=== PATIENT | female | born 1940 | race Caucasian/White ===

== ENCOUNTER 2018-07-10 01:46 | Emergency (ER) | payer MEDICARE ==
[~2018-07-10] VITALS: Ht 152.4 cm; Wt 68.0 kg
--- OUTSIDE RECORDS SUMMARY | 2018-07-10 01:49 | XMS REPORT | Clinical Summary ---
Author Author PATRICIO [facility] Organization [facility] Address Unknown Phone Unavailable Care Team Providers Care Internet Marketing Executive Name Role Phone Joan Ross MD PCP Unavailable Allergies Comments Active Allergy Reactions Severity Noted Date Codeine Nausea And High 07/23/2013 Vomiting Can`t remember Propoxyphene Other (See High 07/23/2013 Comments) Dry mouth Escitalopram Oxalate Other (See High 02/05/2018 Comments) Cough Lisinopril Other (See High 02/05/2018 Comments) Can`t remember Sulfa (Sulfonamide Other (See High 07/23/2013 Antibiotics) Comments) Medications End Date Status Medication Sig Dispensed Refills Start Date Active amLODIPine (NORVASC) 10 Take 10 mg by 0 MG tablet mouth daily. Active calcium citrate-vitamin D Take 1 tablet 0 (CITRACAL+D) 315-200 by mouth 2 mg-unit per tablet (two) times daily. Active hydrALAZINE (APRESOLINE) Take 50 mg by 0 50 MG tablet mouth 2 (two) times daily. Active levothyroxine (SYNTHROID, Take 88 mcg 0 LEVOTHROID) 88 MCG tablet by mouth daily. Active simvastatin (ZOCOR) 20 MG Take 20 mg by 0 tablet mouth nightly. Active buPROPion (WELLBUTRIN SR) Take 150 mg 0 150 MG 12 hr tablet by mouth 2 (two) times daily. Active pantoprazole (PROTONIX) Take 1 tablet 0 40 MG tablet (40 mg total) 8 by mouth daily. Active atenolol (TENORMIN) 50 MG Take 50 mg by 0 tablet mouth daily. Active valsartan (DIOVAN) 320 MG Take 320 mg 0 tablet by mouth daily. Active zolpidem (AMBIEN) 10 mg Take 0.5 30 tablet 0 tablet tablets (5 mg 8 total) by mouth every night as needed. Max Daily Amount: 5 mg 09/06/2017 Discontinued indapamide (LOZOL) 1.25 Take 1.25 mg 0 MG tablet by mouth. 02/10/2018 Discontinued loratadine (CLARITIN) 10 Take 10 mg by 0 mg tablet mouth daily. 02/10/2018 Discontinued zolpidem (AMBIEN) 10 mg Take 10 mg by 0 tablet mouth every night as needed. 09/06/2017 Discontinued acetaminophen (TYLENOL) Take 650 mg 0 325 MG tablet by mouth every 6 (six) hours as needed. 01/21/2018 atenolol (TENORMIN) 50 MG Take 1 tablet 0 tablet (50 mg total) 7 by mouth daily. 09/07/2017 Discontinued buPROPion (WELLBUTRIN SR) Take 1 tablet 0 200 MG 12 hr tablet (200 mg 7 total) by mouth 2 (two) times daily. 09/06/2017 Discontinued simvastatin (ZOCOR) 10 MG Take 2 0 tablet tablets (20 7 mg total) by mouth nightly. 01/21/2018 ferrous sulfate 325 (65 Take 1 tablet 60 tablet 11 FE) MG tablet (325 mg 7 total) by mouth 2 (two) times daily. 09/06/2017 Discontinued fluticasone (FLONASE) 50 1 spray by 16 g 0 mcg/actuation nasal spray Nasal route 7 daily. 09/07/2017 Discontinued pantoprazole (PROTONIX) Take 1 tablet 60 tablet 3 40 MG tablet (40 mg total) 7 by mouth 2 (two) times daily. 01/21/2018 valsartan (DIOVAN) 320 MG Take 1 tablet 0 tablet (320 mg 7 total) by mouth daily. 02/10/2018 Discontinued azithromycin (ZITHROMAX) Take 250 mg 0 250 MG tablet by mouth daily Take by mouth as directed. . 02/10/2018 Discontinued levoFLOXacin (LEVAQUIN) Take 1 tablet 4 tablet 0 500 MG tablet (500 mg 8 total) by mouth daily for 4 days. 02/14/2018 levoFLOXacin (LEVAQUIN) Take 1 tablet 3 tablet 0 500 MG tablet (500 mg 8 total) by mouth daily for 3 days. Active Problems Problem Noted Date Closed head injury, initial encounter 02/05/2018 Hyponatremia 09/06/2017 Pneumonia of left lower lobe due to infectious organism 09/06/2017 Iron deficiency anemia due to chronic blood loss 01/19/2017 Age-related osteoporosis without current pathological fracture 01/19/2017 Acquired hypothyroidism 01/19/2017 Pathological fracture of vertebra due to osteoporosis with routine healing 01/19/2017 Carpal tunnel syndrome 07/25/2013 Encounters Care Team Description Date Type Specialty Rashad Leon MD Dhir, Bhargavi Izquierdo MD Closed head injury, initial encounter (Primary Dx); Contusion of face, initial encounter; Leukocytosis, unspecified type; Acute urinary retention; Urinary urgency; Hyponatremia 02/05/2018 [facility] General Internal Medicine - Encounter 02/10/2018 02/05/2018 Orders Only General Internal Medicine Vladimir Ceja MD Dang, MD Randi Colvin, Mattie Carreno MD Hyponatremia (Primary Dx); Pneumonia of left lower lobe due to infectious organism (HCC); Urinary tract infection without hematuria, site unspecified 09/06/2017 Emergency General Internal Medicine - 09/07/2017 after 07/09/2017 Family History Medical History Relation Name Comments Depression Mother Hypertension Mother Relation Name Status Comments Mother Social History Date Tobacco Use Types Packs/Day Years Used Never Smoker Smokeless Tobacco: Never Used Alcohol Use Drinks/Week oz/Week Comments No rare Sex Assigned at Date Recorded Not on file Industry Job Start Date Occupation Not on file Not on file Not on file Travel End Travel History Travel Start No recent travel history available. Last Filed Vital Signs Time Taken Vital Sign Reading 02/10/2018 8:12 AM CDT Blood Pressure 144/81 02/10/2018 8:12 AM CDT Pulse 84 02/10/2018 7:00 AM CDT Temperature 35.9 C (96.6 F) 02/10/2018 7:00 AM CDT Respiratory Rate 20 02/10/2018 7:00 AM CDT Oxygen Saturation 96% - Inhaled Oxygen - Concentration 02/10/2018 6:00 AM CDT Weight 52 kg (114 lb 11.2 oz) 02/09/2018 6:00 AM CDT Height 160 cm (5' 3") 02/10/2018 6:00 AM CDT Body Mass Index 20.32 Plan of Treatment Not on file Procedures Comments Procedure Name Priority Date/Time Associated Diagnosis RHYTHM STRIP - SCAN 02/13/2018 12:50 PM CDT CBC W/PLT COUNT & AUTO Routine 02/10/2018 DIFFERENTIAL 6:08 AM CDT BASIC METABOLIC PANEL (7) Routine 02/10/2018 6:08 AM CDT CBC W/PLT COUNT & AUTO Routine 02/10/2018 DIFFERENTIAL 6:08 AM CDT POCT-GLUCOSE METER Routine 02/09/2018 5:36 PM CDT BASIC METABOLIC PANEL (7) Routine 02/09/2018 5:21 PM CDT POCT-GLUCOSE METER Routine 02/09/2018 12:11 PM CDT POCT-GLUCOSE METER Routine 02/09/2018 7:39 AM CDT CBC W/PLT COUNT & AUTO Routine 02/09/2018 DIFFERENTIAL 5:55 AM CDT BASIC METABOLIC PANEL (7) Routine 02/09/2018 5:55 AM CDT CBC W/PLT COUNT & AUTO Routine 02/09/2018 DIFFERENTIAL 5:55 AM CDT POCT-GLUCOSE METER Routine 02/08/2018 10:07 PM CDT BASIC METABOLIC PANEL (7) Routine 02/08/2018 5:19 PM CDT POCT-GLUCOSE METER Routine 02/08/2018 12:19 PM CDT POCT-GLUCOSE METER Routine 02/08/2018 8:04 AM CDT CBC W/PLT COUNT & AUTO Routine 02/08/2018 DIFFERENTIAL 4:28 AM CDT BASIC METABOLIC PANEL (7) Routine 02/08/2018 4:28 AM CDT CBC W/PLT COUNT & AUTO Routine 02/08/2018 DIFFERENTIAL 4:28 AM CDT POCT-GLUCOSE METER Routine 02/07/2018 9:43 PM CDT BASIC METABOLIC PANEL (7) Routine 02/07/2018 4:38 PM CDT OSMOLALITY, URINE Routine 02/07/2018 12:03 PM CDT SODIUM, RANDOM URINE Routine 02/07/2018 12:03 PM CDT ECHOCARDIOGRAM REPORT - 02/07/2018 SCAN 11:51 AM CDT BASIC METABOLIC PANEL (7) Routine 02/07/2018 8:41 AM CDT CBC W/PLT COUNT & AUTO Routine 02/07/2018 DIFFERENTIAL 3:57 AM CDT CALCIUM, IONIZED Routine 02/07/2018 3:57 AM CDT BASIC METABOLIC PANEL (7) Routine 02/07/2018 3:57 AM CDT CBC W/PLT COUNT & AUTO Routine 02/07/2018 DIFFERENTIAL 3:57 AM CDT BLOOD CULTURE Routine 02/06/2018 11:44 PM CDT BLOOD CULTURE Routine 02/06/2018 11:22 PM CDT BASIC METABOLIC PANEL (7) Routine 02/06/2018 11:17 PM CDT 2D ECHO W/ DOPPLER EVETTE 02/06/2018 (CW/PW/COLOR) 7:39 PM CDT BASIC METABOLIC PANEL (7) Routine 02/06/2018 6:31 PM CDT BASIC METABOLIC PANEL (7) STAT 02/06/2018 2:29 PM CDT SODIUM NA-STAT LAB Routine 02/06/2018 12:15 PM CDT BASIC METABOLIC PANEL (7) STAT 02/06/2018 10:34 AM CDT MAGNESIUM Routine 02/06/2018 8:07 AM CDT BASIC METABOLIC PANEL (7) STAT 02/06/2018 8:07 AM CDT CORTISOL Routine 02/06/2018 8:07 AM CDT BASIC METABOLIC PANEL (7) STAT 02/06/2018 5:46 AM CDT SODIUM, RANDOM URINE Routine 02/06/2018 3:24 AM CDT OSMOLALITY, URINE Routine 02/06/2018 3:24 AM CDT (CELLAVISION MANUAL DIFF) Routine 02/06/2018 3:23 AM CDT CBC W/PLT COUNT & AUTO Routine 02/06/2018 DIFFERENTIAL 3:23 AM CDT OSMOLALITY, SERUM Routine 02/06/2018 3:23 AM CDT BASIC METABOLIC PANEL (7) STAT 02/06/2018 3:23 AM CDT CBC W/PLT COUNT & AUTO Routine 02/06/2018 DIFFERENTIAL 3:23 AM CDT BASIC METABOLIC PANEL (7) STAT 02/06/2018 1:06 AM CDT BASIC METABOLIC PANEL (7) STAT 02/05/2018 10:57 PM CDT POTASSIUM, RANDOM URINE Routine 02/05/2018 8:44 PM CDT BASIC METABOLIC PANEL (7) STAT 02/05/2018 8:44 PM CDT XR CHEST 1 VIEW STAT 02/05/2018 PORTABLE/BEDSIDE 7:06 PM CDT CREATININE, RANDOM URINE Routine 02/05/2018 6:34 PM CDT CHLORIDE, RANDOM URINE Routine 02/05/2018 6:34 PM CDT SODIUM, RANDOM URINE Routine 02/05/2018 6:34 PM CDT OSMOLALITY, SERUM Routine 02/05/2018 6:34 PM CDT OSMOLALITY, URINE Routine 02/05/2018 6:34 PM CDT TSH/FREE T4 IF INDICATED Routine 02/05/2018 6:34 PM CDT CRITICAL CARE Routine 02/05/2018 5:26 PM CDT OK FAST ULTRASOUND - Routine 02/05/2018 LIMITED ABDOMINAL 5:26 PM CDT MISCELLANEOUS LAB ORDER Routine 02/05/2018 4:31 PM CDT BLOOD CULTURE STAT 02/05/2018 4:31 PM CDT BLOOD CULTURE STAT 02/05/2018 4:31 PM CDT BASIC METABOLIC PANEL (7) STAT 02/05/2018 3:45 PM CDT URINALYSIS W/ MICROSCOPIC STAT 02/05/2018 2:49 PM CDT URINE CULTURE STAT 02/05/2018 2:49 PM CDT (CELLAVISION MANUAL DIFF) STAT 02/05/2018 2:48 PM CDT CBC W/PLT COUNT & AUTO STAT 02/05/2018 DIFFERENTIAL 2:48 PM CDT CBC W/PLT COUNT & AUTO STAT 02/05/2018 DIFFERENTIAL 2:48 PM CDT ECG 12-LEAD Routine 02/05/2018 2:39 PM CDT Procedure Note - Interface, External Ris In - 02/05/2018 6:49 PM CDT Ventricula r Rate 79 BPM Atrial Rate 94 BPM QRS Duration 80 ms Q-T Interval 396 ms QTC Calculatio n(Bazett) 454 ms R [place] 78 degrees T [place] 81 degrees Atrial fibrillati on Nonspecifi c ST and T wave abnormalit y , probably digitalis effect Abnormal ECG When compared with ECG of 7 20:48, Atrial fibrillati on has replaced Sinus rhythm Nonspecifi c T wave abnormalit y now evident in Anterolate ral leads ECG 12-LEAD STAT 02/05/2018 2:[address] MAXILLOFACIAL WITHOUT STAT 02/05/2018 IV CONTRAST 2:[address] BRAIN WITHOUT IV STAT 02/05/2018 CONTRAST 2:15 PM CDT POCT-GLUCOSE METER Routine 09/07/2017 10:33 AM STONE BREAKER BASIC METABOLIC PANEL (7) Routine 09/07/2017 4:25 AM STONE BREAKER CBC (HEMOGRAM ONLY) Routine 09/07/2017 4:25 AM STONE BREAKER POCT-GLUCOSE METER Routine 09/06/2017 10:07 PM STONE BREAKER OSMOLALITY, SERUM Routine 09/06/2017 7:04 PM STONE BREAKER TSH/FREE T4 IF INDICATED Routine 09/06/2017 7:04 PM STONE BREAKER URINE CULTURE STAT 09/06/2017 5:33 PM STONE BREAKER CBC W/PLT COUNT & AUTO STAT 09/06/2017 DIFFERENTIAL 3:03 PM STONE BREAKER MAGNESIUM STAT 09/06/2017 3:03 PM STONE BREAKER HEPATIC FUNCTION PANEL STAT 09/06/2017 3:03 PM STONE BREAKER BASIC METABOLIC PANEL (7) STAT 09/06/2017 3:03 PM STONE BREAKER CBC W/PLT COUNT & AUTO STAT 09/06/2017 DIFFERENTIAL 3:03 PM STONE BREAKER SODIUM, RANDOM URINE Routine 09/06/2017 2:54 PM STONE BREAKER OSMOLALITY, URINE Routine 09/06/2017 2:52 PM STONE BREAKER URINALYSIS W/ MICROSCOPIC STAT 09/06/2017 2:52 PM STONE BREAKER after 07/09/2017 Results * RHYTHM STRIP - SCAN (02/13/2018 12:50 PM CDT) Narrative Performed At * CBC with platelet count + automated diff (02/10/2018 6:08 AM CDT) Only the most recent of 7 results within the time period is included. WBC 7.0 3.5 - 10.5 K/L [facility] RBC 4.30 3.93 - 5.22 M/L [facility] Hemoglobin 12.9 11.2 - 15.7 GM/DL [facility] Hematocrit 38.7 34.1 - 44.9 % [facility] MCV 90.0 79.4 - 94.8 fL [facility] MCH 30.0 25.6 - 32.2 pg [facility] MCHC 33.3 32.2 - 35.5 GM/DL [facility] RDW 12.9 11.7 - 14.4 % [facility] Platelets 227 150 - 450 K/CU MM [facility] MPV 10.2 9.4 - 12.3 fL [facility] nRBC 0 0 - 0 /100 WBC [facility] % Neutros 57 % [facility] % Lymphs 17 % [facility] % Monos 19 % [facility] % Eos 3 % [facility] % Baso 1 % [facility] # Neutros 3.93 1.56 - 6.13 K/L [facility] # Lymphs 1.15 (L) 1.18 - 3.74 K/L [facility] # Monos 1.34 (H) 0.24 - 0.36 K/L [facility] # Eos 0.23 0.04 - 0.36 K/L [facility] # Baso 0.06 0.01 - 0.08 K/L [facility] Immature 4 (H) 0 - 1 % [facility] Granulocytes-Relative [facility] Specimen Blood Performing Organization Address City/State/Zipcode Phone Number [facility] [address] [place] [address] [facility] * Basic Metabolic Panel (02/10/2018 6:08 AM CDT) Only the most recent of 21 results within the time period is included. Sodium 132 (L) 136 - 145 meq/L [facility] Potassium 3.6 3.5 - 5.1 meq/L [facility] Chloride 101 98 - 107 meq/L [facility] CO2 23 22 - 29 meq/L [facility] BUN 13 7 - 21 mg/dL [facility] Creatinine 0.73 0.57 - 1.25 mg/dL [facility] Glucose 96 70 - 105 mg/dL [facility] Calcium 8.4 8.4 - 10.2 mg/dL [facility] EGFR 77Comment: ESTIMATED GFR IS mL/min/1.73 sq m [facility] NOT ACCURATE CREATININE [facility] CLEARANCE IN PREDICTING GLOMERULAR FILTRATION RATE. ESTIMATED GFR IS NOT APPLICABLE FOR DIALYSIS PATIENTS. Specimen Blood Performing Organization Address City/[facility]/Zipcode Phone Number [facility] [address] [place] [address] [facility] * POC-Glucose meter (02/09/2018 5:36 PM CDT) Only the most recent of 9 results within the time period is included. POC-Glucose Meter 114 (H)Comment: TESTED AT 70 - 110 mg/dL [facility] [address] [place] [id number] Specimen Blood Performing Organization Address [facility] [[email or web address] Phone Number [address] * Sodium, random urine (02/07/2018 12:03 PM CDT) Only the most recent of 4 results within the time period is included. Sodium Urine <20 meq/L [facility] Specimen Urine - Urine, [place] Narrative Performed At Reference Range: No Normals [facility] Performing Organization Address [facility] [[email or web address] Phone Number [address] * Osmolality, urine (02/07/2018 12:03 PM CDT) Only the most recent of 4 results within the time period is included. Osmolality, Ur 205 40 - 1,400 mOsm/kg [facility] Specimen Urine - Urine, [place] Performing Organization Address [facility] Phone Number [address] * ECHOCARDIOGRAM REPORT - SCAN (02/07/2018 11:51 AM CDT) Narrative Performed At * Calcium, Ionized (02/07/2018 3:57 AM CDT) Calcium, Ion 1.08 (L) 1.12 - 1.27 mmol/L [facility] pH, Blood 7.45 [facility] Specimen Blood Performing Organization Address [facility] [[email or web address]]conm Phone Number [address] * Blood culture (02/06/2018 11:44 PM CDT) Only the most recent of 4 results within the time period is included. Result No growth in 5 days [facility] Specimen Blood - Arm, Right Performing Organization Address City/[facility] [[email or web address] Phone Number [facility] [address] [place] [address] [facility] * 2D Echo W/Doppler(CW/PW/Color) (02/06/2018 7:39 PM CDT) Ejection Fraction [facility] Narrative Performed At Transthoracic Echocardiography Report (TTE) [facility] Demographics [facility] Patient Milagros Mueller of Study 02/06/2018 JOEL Visit [id number] Unknown Room Number 7301 Number Date of 1940Referring Physician Christian Guerra MD Age 77 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 Clinical History AV BLOCK CANCER GERD HIGH CHOLESTEROL HTN HYPOTHYROIDISM Height: 63 inches Weight: 54.43 kg (120 lbs) BSA: 1.56 m^2 BMI: 21.26 kg/m^2 HR: 63 bpm BP: 110/64 mmHg Summary Normal biventricular systolic function. LVEF 55-60%. Severe left atrial dilation. Mild aortic and tricuspid regurgitation. Estimated PASP 35-40mmHg. No pericardial effusion. Previous Study No prior studies available for comparison. Signature Findings Rhythm/BPAtrial fibrillation with controlled ventricular response. Left Ventricle The left ventricle is chamber size (by vol index) is normal (female - LVED vol - 29-61ml/m2). Sigmoid septum with discrete basal septal hypertrophy is present, otherwise normal LV wall thickness. All of the LV segments contract normally . LVEF by García's method of disk assessment is normal (60%) . Degree of diastolic dysfunction (LAP assessment) is inconclusive due to arrhythmia . Left AtriumLA size is severely enlarged (>48 ml/m2) . Right VentricleThe right ventricular chamber size and systolic function are within normal limits. Right Atrium RA size is mildly dilated. Atrial SeptumNormal interatrial septum by available views. Aortic Valve Mild AoV cusp thickening. Mild AoV cusp calcification. There is mild aortic regurgitation. Mitral Valve Mild MV leaflet thickening. Trace mitral regurgitation. Tricuspid ValveMild TV leaflet thickening. Mild tricuspid regurgitation. Estimated peak systolic PA pressure is 35-40 mmHg Pulmonic Valve Normal PV structure. A trace of pulmonary regurgitation. AortaAortic root size (SInus of Valsalva diameter) is normal . PericardiumNo significant pericardial effusion is visualized. IVC/SVC/PA/PV/PleuralThe estimated RA pressure by IVC dynamics 5-10mmHg . Chambers/Structures Left Atrium LA Volume: 91.78 ml LA Area: 26.88 cm^2 LA Vol. Index: 59 ml/m^2 Left Ventricle LVIDd: 3.37 cm LVIDs: 2.07 cm LV Septum Diastolic: 1.14 cm LV Septum Systolic: 1.49 cm LV FS: 38.6 % LV PW Diastolic: 1.29 cm LV PW Systolic: 1.33 cm LVEDVI: 36 ml/m^2 LVEDV García's:55.55 mlLVESVI: 15 ml/m^2 LVESV García's:22.89 ml LVEF García's: 58.8 % Right Atrium RA Vol. (Sngl Plane): 53.45 ml Right Ventricle TAPSE: 2.09 cm Vena Cava IVC Inspirium: 1.16 cmIVC Expirium: 1.62 cm Doppler/Quantitative Measurements Mitral Valve MV Peak E-Wave: 1.36 m/s Peak Gradient: 7.39 mmHg MV Dani. Peak: Tissue Doppler E' Septal Velocity: 0.07 m/s E/E': 12.67 E' Lateral Velocity: 0.11 m/s Aortic Valve Area (2D): 2.15 cm^2 AR P1/2t: 510.8 msec LVOT Peak Velocity: 1.06 m/s Peak Gradient: 4.51 mmHg Mean Velocity: 0.69 m/s Mean Gradient: 2.3 mmHg LVOT VTI: 19.8 cm Tricuspid Valve TR Velocity: 2.81 m/s TR Gradient: 31.6 mmHg Procedure Note Interface, External Ris In - 02/07/2018 11:24 AM CDT Transthoracic Echocardiography Report (TTE) Demographics Patient Name WM ESCOBAR Date of Study 02/06/2018 [facility] [place] Female Visit Number [id number] Race Unknown Room Number 7301 Number Date of 1940 Referring Physician Christian Guerra MD Age 77 year(s) [employer]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 Clinical History AV BLOCK CANCER GERD HIGH CHOLESTEROL HTN HYPOTHYROIDISM Height: 63 inches Weight: 54.43 kg (120 lbs) BSA: 1.56 m^2 BMI: 21.26 kg/m^2 HR: 63 bpm BP: 110/64 mmHg Summary Normal biventricular systolic function. LVEF 55-60%. Severe left atrial dilation. Mild aortic and tricuspid regurgitation. Estimated PASP 35-40mmHg. No pericardial effusion. Previous Study No prior studies available for comparison. Signature Findings Rhythm/BP Atrial fibrillation with controlled ventricular response. Left Ventricle The left ventricle is chamber size (by vol index) is normal (female - LVED vol - 29-61ml/m2). Sigmoid septum with discrete basal septal hypertrophy is present, otherwise normal LV wall thickness. All of the LV segments contract normally . LVEF by García's method of disk assessment is normal (60%) . Degree of diastolic dysfunction (LAP assessment) is inconclusive due to arrhythmia . Left Atrium LA size is severely enlarged (>48 ml/m2) . Right Ventricle The right ventricular chamber size and systolic function are within normal limits. Right Atrium RA size is mildly dilated. Atrial Septum Normal interatrial septum by available views. Aortic Valve Mild AoV cusp thickening. Mild AoV cusp calcification. There is mild aortic regurgitation. Mitral Valve Mild MV leaflet thickening. Trace mitral regurgitation. Tricuspid Valve Mild TV leaflet thickening. Mild tricuspid regurgitation. Estimated peak systolic PA pressure is 35-40 mmHg Pulmonic Valve Normal PV structure. A trace of pulmonary regurgitation. Aorta Aortic root size (SInus of Valsalva diameter) is normal . Pericardium No significant pericardial effusion is visualized. IVC/SVC/PA/PV/Pleural The estimated RA pressure by IVC dynamics 5-10mmHg . Chambers/Structures Left Atrium LA Volume: 91.78 ml LA Area: 26.88 cm^2 LA Vol. Index: 59 ml/m^2 Left Ventricle LVIDd: 3.37 cm LVIDs: 2.07 cm LV Septum Diastolic: 1.14 cm LV Septum Systolic: 1.49 cm LV FS: 38.6 % LV PW Diastolic: 1.29 cm LV PW Systolic: 1.33 cm LVEDVI: 36 ml/m^2 LVEDV García's:55.55 ml LVESVI: 15 ml/m^2 LVESV García's:22.89 ml LVEF García's: 58.8 % Right Atrium RA Vol. (Sngl Plane): 53.45 ml Right Ventricle TAPSE: 2.09 cm Vena Cava IVC Inspirium: 1.16 cm IVC Expirium: 1.62 cm Doppler/Quantitative Measurements Mitral Valve MV Peak E-Wave: 1.36 m/s Peak Gradient: 7.39 mmHg MV Dani. Peak: Tissue Doppler E' Septal Velocity: 0.07 m/s E/E': 12.67 E' Lateral Velocity: 0.11 m/s Aortic Valve Area (2D): 2.15 cm^2 AR P1/2t: 510.8 msec LVOT Peak Velocity: 1.06 m/s Peak Gradient: 4.51 mmHg Mean Velocity: 0.69 m/s Mean Gradient: 2.3 mmHg LVOT VTI: 19.8 cm Tricuspid Valve TR Velocity: 2.81 m/s TR Gradient: 31.6 mmHg Performing Organization Address [facility] [[email or web address] Phone Number [facility] * Sodium Na-Stat Lab (02/06/2018 12:15 PM CDT) Sodium 118 (LL) 135 - 148 meq/L [facility] Specimen Blood, Arterial - Arm, Left Performing Organization Address [facility] Phone Number [address] * Cortisol (02/06/2018 8:07 AM CDT) Cortisol, Total 12.8 3.7 - 19.4 ug/dL [facility] Specimen Blood - Arm, Right Performing Organization Address [facility] Phone Number [address] * Magnesium (02/06/2018 8:07 AM CDT) Only the most recent of 2 results within the time period is included. Magnesium 2.2 1.6 - 2.6 mg/dL [facility] Specimen Blood - Arm, Right Performing Organization Address [facility] Phone Number [address] * Manual Differential (02/06/2018 3:23 AM CDT) Only the most recent of 2 results within the time period is included. % Neutros 90 % [facility] % Lymphs 3 % [facility] % Monos 5 % [facility] % Bands 1 0 - 10 % [facility] % Atypical Lymphs 1 (H) 0 - 0 % [facility] # Neutros 13.59 (H) 1.56 - 6.13 K/ul [facility] # Lymphs 0.45 (L) 1.18 - 3.74 K/ul [facility] # Monos 0.76 (H) 0.24 - 0.36 K/uL [facility] # Bands 0.15 0.00 - 0.80 K/uL [facility] # Atypical Lymphs 0.15 (H) 0.00 - 0.00 K/uL [facility] Total Counted 100 [facility] RBC Morphology Normal [facility] Clumped Platelet Present [facility] Smudge Cells Present [facility] Giant Platelet Present [facility] Artifact Present [facility] Platelet Conc Adequate [facility] Specimen Blood - Arm, Left Narrative Performed At Received comment: [facility] User comments: [facility] Slide comments: Performing Organization Address City/[facility] [[email or web address]]code Phone Number [facility] [address] [place] [address] [phone] [place] [address] * Osmolality, serum (02/06/2018 3:23 AM CDT) Only the most recent of 3 results within the time period is included. Osmolality Serum 249 (L) 275 - 295 mOsm/kg [facility] Specimen Blood - Arm, Left Performing Organization Address City/[facility] [[email or web address] Phone Number [facility] [address] [place] [address] [facility] * Potassium, random urine (02/05/2018 8:44 PM CDT) Potassium Urine 22.8 meq/L [facility] Specimen Urine - Urine, [place] Narrative Performed At Reference Range: No Normals [facility] Performing Organization Address City/[facility] [[email or web address] Phone Number [facility] [address] [address] [facility] * XR chest 1 view portable / bedside (02/05/2018 7:06 PM CDT) Narrative Performed At FINAL REPORT [facility] History: Leukocytosis, fall. Comparison: 01/20/2018 Findings: A single view of the chest is submitted. The cardiac silhouette is within normal limits for size. There is atherosclerotic calcification of the aorta. A retrocardiac hiatal hernia is redemonstrated. The lungs are hyperinflated. There is no focal consolidation, pneumothorax, large pleural effusion or evidence of overt pulmonary edema. There is no acute bony abnormality. Impression: No acute abnormality. Signed: Teodoro Lakhani MD Report Verified Date/Time:02/05/2018 19:15:38 Reading Location: [address] Reading Room Procedure Note Interface, External Ris In - 02/05/2018 7:17 PM CDT FINAL REPORT History: Leukocytosis, fall. Comparison: 01/20/2018 Findings: A single view of the chest is submitted. The cardiac silhouette is within normal limits for size. There is atherosclerotic calcification of the aorta. A retrocardiac hiatal hernia is redemonstrated. The lungs are hyperinflated. There is no focal consolidation, pneumothorax, large pleural effusion or evidence of overt pulmonary edema. There is no acute bony abnormality. Impression: No acute abnormality. Signed: Teodoro Lakhani MD Report Verified Date/Time: 02/05/2018 19:15:38 Reading Location: [address] Reading Room Performing Organization Address City/[facility]/Zipcode Phone Number [facility] * TSH/Free T4 If Indicated (02/05/2018 6:34 PM CDT) Only the most recent of 2 results within the time period is included. TSH 2.09 0.35 - 4.94 uIU/mL [facility] Specimen Blood - Line, Venous Performing Organization Address City/[facility]/Zipcode Phone Number [facility] [address] [facility] * Creatinine, random urine (02/05/2018 6:34 PM CDT) Creatinine, Ur 16.1 mg/dL [facility] Specimen Urine - Urine, [place] Narrative Performed At Reference Range: No Normals [facility] Performing Organization Address [facility] [[email or web address]]conm Phone Number [address] [address] [facility] * Chloride, random urine (02/05/2018 6:34 PM CDT) ChlorideUr <20 meq/L [facility] Specimen Urine - Urine, [place] Narrative Performed At Reference Range: No Normals [facility] Performing Organization Address [facility] [[email or web address]]conm Phone Number [address] [address] [facility] * ED ABDOMINAL ULTRASOUND (02/05/2018 5:26 PM CDT) Narrative Performed At Rashad Leon MD 02/05/20185:26 PM Abd US Date/Time: 02/05/2018 2:25 PM Performed by: RASHAD LEON Authorized by: RASHAD LEON Consent: Verbal consent obtained. Risks and benefits: risks, benefits and alternatives were discussed Consent given by: patient Patient identity confirmed: verbally with patient Local anesthesia used: no Anesthesia: Local anesthesia used: no Sedation: Patient sedated: no Patient tolerance: Patient tolerated the procedure well with no immediate complications Immediate Post-Procedure Note Assistants to the procedure: None Pre-procedure diagnosis: ABDOMINAL PAIN URINARY URGENCY Post-procedure diagnosis: URINARY URGENCY/RETENTION Procedures Performed: Abd US Specimens removed: None Estimated blood loss (mL): None Complications: None Type of anesthesia: None Grafts or Implants: None Examiner:Attending Examiner attestation: I personally performed the procedure myself Indications:Abdominal pain Scope: limited--single quadrant or single abdominal organ : EVAULATED FOR URINARY RETENTION. : DISTENDED BLADDER.Procedure Notes:Confirmatory study to be done in ED * CRITICAL CARE (02/05/2018 5:26 PM CDT) Narrative Performed At Rashad Leon MD 02/05/20185:26 PM Critical Care Performed by: RASHAD LEON. Authorized by: RASHAD LEON Total critical care time: 35 minutes Critical care time was exclusive of separately billable procedures and treating other patients. Critical care was necessary to treat or prevent imminent or life-threatening deterioration of the following conditions: metabolic crisis, sepsis and dehydration. Critical care was time spent personally by me on the following activities: development of treatment plan with patient or surrogate, discussions with consultants, obtaining history from patient or surrogate, examination of patient, ordering and performing treatments and interventions, ordering and review of laboratory studies, pulse oximetry, re-evaluation of patient's condition and ordering and review of radiographic studies. Comments: I provided medically necessary Critical Care on an emergent basis in order to prevent any sudden, clinically significant deterioration in her condition. Critical care time:35min It is my opinion that her clinical presentation, without appropriate emergent intervention has the potential to acutely impair one or more of her vital organ systems with a high probability of imminent deterioration in her condition. The time involved in the performance of separately reportable procedures or teaching time was not counted towards the critical care time that is documented here. * BCID (02/05/2018 4:31 PM CDT) Scan Result [facility] Specimen Blood Narrative Performed At [facility] Result comments: LAB NOT DETECTED Panel is negative for BioFire BCID-detectable organisms. Please refer to traditional culture and sensitivity results as they become available. Other organisms and resistance markers not contained in this PCR panel cannot be excluded and follow-up of traditional culture results is required. This sample was tested at the [facility] Clinical Microbiology Laboratory using the Biofire FilmArray Blood Culture ID Panel. This test is FDA cleared for in vitro diagnostic use and has been verified and approved by the [facility] Clinical Microbiology laboratory for clinical use. Reference Range: Not Detected Performing Organization Address City/State/Zipcode Phone Number [facility] [address] [place], [place] * Urinalysis w/Microscopic (02/05/2018 2:49 PM CDT) Only the most recent of 2 results within the time period is included. Color, UA Yellow [facility] Clarity, UA Hazy [facility] Specific [place], UA 1.005 1.001 - 1.035 [facility] pH, UA 8.0 5.0 - 8.0 [facility] Protein, UA 30 mg/dL (A) Negative [facility] Glucose, UA Negative Negative [facility] Ketones, UA Negative Negative [facility] Bilirubin, UA Negative Negative [facility] Blood, UA Trace (A) Negative [facility] Nitrite, UA Negative Negative [facility] Leukocytes, UA Large (A) Negative [facility] Urobilinogen, UA 0.2 0.2 - 1.0 mg/dL [facility] RBC, UA 11 /HPF [facility] WBC, UA 11 /HPF [facility] Bacteria, UA Moderate [facility] Specimen Source Urine, [place] [facility] Specimen Urine - Urine, [place] Performing Organization Address City/State/Zipcode Phone Number [facility] [address] [place] [address] [facility]ENTER * Urine culture (02/05/2018 2:49 PM CDT) Only the most recent of 2 results within the time period is included. Result KLEBSIELLA PNEUMONIAE (A) [facility] Specimen Urine Antibiotic Method Susceptibility Organism Amikacin <=2: Susceptible Klebsiella pneumoniae Ampicillin + Sulbactam 4: Susceptible Klebsiella pneumoniae Aztreonam <=1: Susceptible Klebsiella pneumoniae Cefepime <=1: Susceptible Klebsiella pneumoniae Cefoxitin <=4: Susceptible Klebsiella pneumoniae Ceftazidime <=1: Susceptible Klebsiella pneumoniae Ceftriaxone <=1: Susceptible Klebsiella pneumoniae Ertapenem <=0.5: Susceptible Klebsiella pneumoniae Gentamicin <=1: Susceptible Klebsiella pneumoniae Levofloxacin <=0.12: Susceptible Klebsiella pneumoniae Meropenem <=0.25: Susceptible Klebsiella pneumoniae Nitrofurantoin 64: Resistant Klebsiella pneumoniae Piperacillin + Tazobactam <=4: Susceptible Klebsiella pneumoniae Tetracycline <=1: Susceptible Klebsiella pneumoniae Tobramycin <=1: Susceptible Klebsiella pneumoniae Trimethoprim + Sulfamethoxazole <=20: Susceptible Klebsiella pneumoniae Performing Organization Address City/[facility] [[email or web address]]conm Phone Number [facility] [address] [place] [address] [facility] * ECG 12 lead (02/05/2018 2:39 PM CDT) Narrative Performed At Ventricular Rate 79 BPM GE MUSE Atrial Rate 94 BPM QRS Duration 80 ms Q-T Interval 396 ms QTC Calculation(Bazett) 454 ms R [place] 78 degrees T [place] 81 degrees Atrial fibrillation Nonspecific ST and T wave abnormality Abnormal ECG When compared with ECG of 19-JAN-2017 20:48, Atrial fibrillation has replaced Sinus rhythm Nonspecific T wave abnormality now evident in Anterolateral leads Confirmed by MD BRADY YOCHAI ([id number]) on 02/06/2018 6:30:04 AM Procedure Note Interface, External Ris In - 02/06/2018 6:30 AM CDT Ventricular Rate 79 BPM Atrial Rate 94 BPM QRS Duration 80 ms Q-T Interval 396 ms QTC Calculation(Bazett) 454 ms R [place] 78 degrees T [place] 81 degrees Atrial fibrillation Nonspecific ST and T wave abnormality Abnormal ECG When compared with ECG of 19-JAN-2017 20:48, Atrial fibrillation has replaced Sinus rhythm Nonspecific T wave abnormality now evident in Anterolateral leads Confirmed by MD BRADY YOCHAI ([id number]) on 02/06/2018 6:30:04 AM Performing Organization Address [facility] Phone Number [employer] * CT maxillofacial without IV contrast (02/05/2018 2:15 PM CDT) Narrative Performed At FINAL REPORT [email or web address] CT Head and Maxillofacial Clinical History: FALL TRAUMA Technique: Contiguous axial images through the head without contrast. Contiguous axial and coronal images through the maxillofacial sinuses without contrast. This exam was performed according to the departmental dose optimization program which includes automated exposure control, adjustment of the mA and/or kV according to the patient size, and/or use of an iterative reconstruction technique. Comparisons: None Findings: There is a forehead scalp swelling. There is no evidence of skull fracture or intracranial hemorrhage. There is mild periventricular and subcortical white matter hypodensity which is nonspecific but compatible with chronic microvascular ischemic change. There are atherosclerotic calcifications of the intracranial circulation. There is mild generalized parenchymal volume loss without hydrocephalus, midline shift, or apparent mass effect. There is no evidence of facial fracture or retro-orbital hemorrhage. The nasal septum is deviated to the right with a right-sided septal spur. There is a left ada bullosa. The paranasal sinuses are well aerated. Impression: No evidence of skull fracture or intracranial hemorrhage. No facial fracture or retro-orbital hemorrhage. Forehead scalp swelling. Signed: Ayden Sharpe MD Report Verified Date/Time:02/05/2018 14:25:14 Reading Location: [address] Neuro Reading Room Procedure Note Interface, External Ris In - 02/05/2018 2:27 PM CDT FINAL REPORT CT Head and Maxillofacial Clinical History: FALL TRAUMA Technique: Contiguous axial images through the head without contrast. Contiguous axial and coronal images through the maxillofacial sinuses without contrast. This exam was performed according to the departmental dose optimization program which includes automated exposure control, adjustment of the mA and/or kV according to the patient size, and/or use of an iterative reconstruction technique. Comparisons: None Findings: There is a forehead scalp swelling. There is no evidence of skull fracture or intracranial hemorrhage. There is mild periventricular and subcortical white matter hypodensity which is nonspecific but compatible with chronic microvascular ischemic change. There are atherosclerotic calcifications of the intracranial circulation. There is mild generalized parenchymal volume loss without hydrocephalus, midline shift, or apparent mass effect. There is no evidence of facial fracture or retro-orbital hemorrhage. The nasal septum is deviated to the right with a right-sided septal spur. There is a left ada bullosa. The paranasal sinuses are well aerated. Impression: No evidence of skull fracture or intracranial hemorrhage. No facial fracture or retro-orbital hemorrhage. Forehead scalp swelling. Signed: Ayden Sharpe MD Report Verified Date/Time: 02/05/2018 14:25:14 Reading Location: [address] Neuro Reading Room Performing Organization Address City/State/Zipcode Phone Number [facility] * CT brain without IV contrast (02/05/2018 2:15 PM CDT) Narrative Performed At FINAL REPORT [facility] CT Head and Maxillofacial Clinical History: FALL TRAUMA Technique: Contiguous axial images through the head without contrast. Contiguous axial and coronal images through the maxillofacial sinuses without contrast. This exam was performed according to the departmental dose optimization program which includes automated exposure control, adjustment of the mA and/or kV according to the patient size, and/or use of an iterative reconstruction technique. Comparisons: None Findings: There is a forehead scalp swelling. There is no evidence of skull fracture or intracranial hemorrhage. There is mild periventricular and subcortical white matter hypodensity which is nonspecific but compatible with chronic microvascular ischemic change. There are atherosclerotic calcifications of the intracranial circulation. There is mild generalized parenchymal volume loss without hydrocephalus, midline shift, or apparent mass effect. There is no evidence of facial fracture or retro-orbital hemorrhage. The nasal septum is deviated to the right with a right-sided septal spur. There is a left ada bullosa. The paranasal sinuses are well aerated. Impression: No evidence of skull fracture or intracranial hemorrhage. No facial fracture or retro-orbital hemorrhage. Forehead scalp swelling. Signed: Ayden Sharpe MD Report Verified Date/Time:02/05/2018 14:25:14 Reading Location: [address] Neuro Reading Room Procedure Note Interface, External Ris In - 02/05/2018 2:27 PM CD[address] FINAL REPORT CT Head and Maxillofacial Clinical History: FALL TRAUMA Technique: Contiguous axial images through the head without contrast. Contiguous axial and coronal images through the maxillofacial sinuses without contrast. This exam was performed according to the departmental dose optimization program which includes automated exposure control, adjustment of the mA and/or kV according to the patient size, and/or use of an iterative reconstruction technique. Comparisons: None Findings: There is a forehead scalp swelling. There is no evidence of skull fracture or intracranial hemorrhage. There is mild periventricular and subcortical white matter hypodensity which is nonspecific but compatible with chronic microvascular ischemic change. There are atherosclerotic calcifications of the intracranial circulation. There is mild generalized parenchymal volume loss without hydrocephalus, midline shift, or apparent mass effect. There is no evidence of facial fracture or retro-orbital hemorrhage. The nasal septum is deviated to the right with a right-sided septal spur. There is a left ada bullosa. The paranasal sinuses are well aerated. Impression: No evidence of skull fracture or intracranial hemorrhage. No facial fracture or retro-orbital hemorrhage. Forehead scalp swelling. Signed: Ayden Sharpe MD Report Verified Date/Time: 02/05/2018 14:25:14 Reading Location: [facility] B1 [id number] Neuro Reading Room Performing Organization Address City/State/Zipcode Phone Number GE [facility] * CBC (Hemogram only) (09/07/2017 4:25 AM STONE BREAKER) WBC 10.9 (H) 3.5 - 10.5 K/L [facility] RBC 4.09 3.93 - 5.22 M/L [facility] Hemoglobin 12.4 11.2 - 15.7 GM/DL [facility] Hematocrit 36.3 34.1 - 44.9 % [facility] MCV 88.8 79.4 - 94.8 fL [facility] MCH 30.3 25.6 - 32.2 pg [facility] MCHC 34.2 32.2 - 35.5 GM/DL [facility] RDW 12.2 11.7 - 14.4 % [facility] Platelets 274 150 - 450 K/CU MM [facility] MPV 9.8 9.4 - 12.3 fL [facility] nRBC 0 0 - 0 /100 WBC [facility] Specimen Blood Performing Organization Address City/State/Zipcode Phone Number [facility] [address] [place] [address] MEDICAL [facility]ENTER * Hepatic function panel (09/06/2017 3:03 PM STONE BREAKER) Protein, Total 6.8 6.0 - 8.3 gm/dL [facility] Albumin 3.8 3.5 - 5.0 g/dL [facility] Total Bilirubin 0.5 0.2 - 1.2 mg/dL [facility] Bilirubin, Direct 0.2 0.1 - 0.5 mg/dL [facility] Alkaline Phosphatase 81 40 - 150 U/L [facility] AST 15 5 - 34 U/L [facility] ALT 16 6 - 55 U/L [facility] Specimen Blood Performing Organization Address City/State/Zipcode Phone Number [facility] [address], [place] [phone] [facility] CENTER after 07/09/2017 Insurance Payer Benefit Subscriber ID Type Phone Address Plan / Group [facility] xxxxxxxxxxx MEDICARE ADV Advance Directives For more information, please contact: [facility] [address] [place] [phone] Date Inactivated Comments Code Status Date Activated 02/10/2018 2:27 PM Full Code 02/05/2018 6:18 PM This code status was determined by: Patient 09/07/2017 4:48 PM Full Code 09/06/2017 7:12 PM This code status was determined by: Patient 01/21/2017 10:09 PM Full Code 01/19/2017 9:38 PM This code status was determined by: Patient 07/25/2013 6:19 PM All possible means of support including;cardiac massage, mechanical ventilation, and defibrillation will be used to support life. Code ONE 07/25/2013 11:56 AM
--- OUTSIDE RECORDS SUMMARY | 2018-07-10 01:50 | XMS REPORT ---
Author Author [facility] Address Unknown Phone Unavailable Care Team Providers Care Fluid Power Mechanic Name Role Phone Wilfredo LEON Unavailable Unavailable LINA RODARTE Unavailable Unavailable Hiral SOTO Unavailable Unavailable Problems This patient has no known problems. Allergies, Adverse Reactions, Alerts This patient has no known allergies or adverse reactions. Medications This patient has no known medications. Results Test Description Test Time Test Comments Text Results Atomic Results Result Comments BLOOD CULTURE 2018-02-12 06:00:00 CULTURE (BEAKER) (test vyta=9807) No growth in 5 days BLOOD [id number] 06:00:00* Test Item Value Reference Range Comments CULTURE (BEAKER) (test ufko=8979) No growth in 5 days BLOOD [id number] 11:18:00* Test Item Value Reference Range Comments CULTURE (BEAKER) (test roic=8678) From Anaerobic Bottle Only Bacillus species, not anthracis GRAM STAIN RESULT (BEAKER) (test ntpz=9555) From anaerobic bottle only: gram positive rods NOT DETECTEDPanel is negative for BioFire BCID-detectable organisms. Please refe r to traditional culture and sensitivity results as they become available.Other organisms and resistance markers not contained in this PCR panel cannot be exclu ded and follow-up of traditional culture results is required. This sample was t ested at the [facility] using the [employer] FilmArray Blood Culture ID Panel. This test is FDA cleared for in vitro diagnostic use and has been verified and approved by the [facility] for clinical use. Reference Range: Not DetectedBLOOD [id number] 00:00:00* Test Item Value Reference Range Comments CULTURE (BEAKER) (test hape=7967) No growth in 5 days CBC W/PLT COUNT & AUTO [id number] 07:09:00* Test Item Value Reference Range Comments WHITE BLOOD CELL COUNT (BEAKER) (test fhry=291) 7.0 K/ L 3.5-10.5 RED BLOOD CELL COUNT (BEAKER) (test jzut=960) 4.30 M/ L 3.93-5.22 HEMOGLOBIN (BEAKER) (test qppy=395) 12.9 GM/DL 11.2-15.7 HEMATOCRIT (BEAKER) (test trua=873) 38.7 % 34.1-44.9 MEAN CORPUSCULAR VOLUME (BEAKER) (test dzbh=547) 90.0 fL 79.4-94.8 MEAN CORPUSCULAR HEMOGLOBIN (BEAKER) (test fgsy=074) 30.0 pg 25.6-32.2 MEAN CORPUSCULAR HEMOGLOBIN CONC (BEAKER) (test vdyt=749) 33.3 GM/DL 32.2-35.5 RED CELL DISTRIBUTION WIDTH (BEAKER) (test oifm=858) 12.9 % 11.7-14.4 PLATELET COUNT (BEAKER) (test nyqy=692) 227 K/CU MM 150-450 MEAN PLATELET VOLUME (BEAKER) (test hejf=009) 10.2 fL 9.4-12.3 NUCLEATED RED BLOOD CELLS (BEAKER) (test ksbt=384) 0 /100 WBC 0-0 NEUTROPHILS RELATIVE PERCENT (BEAKER) (test uzut=731) 57 % LYMPHOCYTES RELATIVE PERCENT (BEAKER) (test eccb=002) 17 % MONOCYTES RELATIVE PERCENT (BEAKER) (test tasp=761) 19 % EOSINOPHILS RELATIVE PERCENT (BEAKER) (test rhnz=877) 3 % BASOPHILS RELATIVE PERCENT (BEAKER) (test qove=514) 1 % NEUTROPHILS ABSOLUTE COUNT (BEAKER) (test rrxp=343) 3.93 K/ L 1.56-6.13 LYMPHOCYTES ABSOLUTE COUNT (BEAKER) (test yska=207) 1.15 K/ L 1.18-3.74 MONOCYTES ABSOLUTE COUNT (BEAKER) (test hfuj=997) 1.34 K/ L 0.24-0.36 EOSINOPHILS ABSOLUTE COUNT (BEAKER) (test kclz=297) 0.23 K/ L 0.04-0.36 BASOPHILS ABSOLUTE COUNT (BEAKER) (test hagt=410) 0.06 K/ L 0.01-0.08 IMMATURE GRANULOCYTES-RELATIVE PERCENT (BEAKER) (test egjo=6446) 4 % 0-1 BASIC METABOLIC [id number] 07:04:00* Test Item Value Reference Range Comments SODIUM (BEAKER) (test ecik=879) 132 meq/L 136-145 POTASSIUM (BEAKER) (test otwe=297) 3.6 meq/L 3.5-5.1 CHLORIDE (BEAKER) (test evjn=607) 101 meq/L 98-107 CO2 (BEAKER) (test fpxv=257) 23 meq/L 22-29 BLOOD UREA NITROGEN (BEAKER) (test tzfq=415) 13 mg/dL 7-21 CREATININE (BEAKER) (test gwoz=769) 0.73 mg/dL 0.57-1.25 GLUCOSE RANDOM (BEAKER) (test szak=095) 96 mg/dL 70-105 CALCIUM (BEAKER) (test pqkn=356) 8.4 mg/dL 8.4-10.2 EGFR (BEAKER) (test zjsh=8877) 77 mL/min/1.73 sq m ESTIMATED GFR IS NOT ACCURATE CREATININE CLEARANCE IN PREDICTING GLOMERULAR FILTRATION RATE. ESTIMATED GFR IS NOT APPLICABLE FOR DIALYSIS PATIENTS. POCT-GLUCOSE [id number] 18:29:00* Test Item Value Reference Range Comments POC-GLUCOSE METER (BEAKER) (test xwig=1544) 114 mg/dL 70-[address] [facility] [address] [facility] [address] BASIC METABOLIC [id number] 18:01:00* Test Item Value Reference Range Comments SODIUM (BEAKER) (test ytjs=360) 130 meq/L 136-145 POTASSIUM (BEAKER) (test veqo=204) 4.1 meq/L 3.5-5.1 Specimen slightly hemolyzed CHLORIDE (BEAKER) (test suro=713) 98 meq/L 98-107 CO2 (BEAKER) (test mqrb=457) 22 meq/L 22-29 BLOOD UREA NITROGEN (BEAKER) (test keld=700) 14 mg/dL 7-21 CREATININE (BEAKER) (test cwqq=928) 0.77 mg/dL 0.57-1.25 Specimen slightly hemolyzed GLUCOSE RANDOM (BEAKER) (test pvuq=830) 97 mg/dL 70-105 CALCIUM (BEAKER) (test lpzl=474) 8.7 mg/dL 8.4-10.2 EGFR (BEAKER) (test qoom=0324) 73 mL/min/1.73 sq m ESTIMATED GFR IS NOT ACCURATE CREATININE CLEARANCE IN PREDICTING GLOMERULAR FILTRATION RATE. ESTIMATED GFR IS NOT APPLICABLE FOR DIALYSIS PATIENTS. POCT-GLUCOSE [id number] 12:41:00* Test Item Value Reference Range Comments POC-GLUCOSE METER (BEAKER) (test ifyg=1247) 124 mg/dL 70-[address] [facility] [address] [facility] [address] POCT-GLUCOSE [id number] 08:12:00* Test Item Value Reference Range Comments POC-GLUCOSE METER (BEAKER) (test hwoa=5114) 102 mg/dL 70-[address] [facility] [address] [facility] [address] BASIC METABOLIC [id number] 06:36:00* Test Item Value Reference Range Comments SODIUM (BEAKER) (test igaq=742) 131 meq/L 136-145 POTASSIUM (BEAKER) (test grmp=956) 3.8 meq/L 3.5-5.1 CHLORIDE (BEAKER) (test zlke=149) 100 meq/L 98-107 CO2 (BEAKER) (test dodv=780) 22 meq/L 22-29 BLOOD UREA NITROGEN (BEAKER) (test nkov=409) 14 mg/dL 7-21 CREATININE (BEAKER) (test adrw=421) 0.73 mg/dL 0.57-1.25 GLUCOSE RANDOM (BEAKER) (test rotk=542) 100 mg/dL 70-105 CALCIUM (BEAKER) (test xphp=808) 8.1 mg/dL 8.4-10.2 EGFR (BEAKER) (test juls=4381) 77 mL/min/1.73 sq m ESTIMATED GFR IS NOT ACCURATE CREATININE CLEARANCE IN PREDICTING GLOMERULAR FILTRATION RATE. ESTIMATED GFR IS NOT APPLICABLE FOR DIALYSIS PATIENTS. CBC W/PLT COUNT & AUTO [id number] 06:16:00* Test Item Value Reference Range Comments WHITE BLOOD CELL COUNT (BEAKER) (test coyn=257) 7.4 K/ L 3.5-10.5 RED BLOOD CELL COUNT (BEAKER) (test mybe=479) 4.19 M/ L 3.93-5.22 HEMOGLOBIN (BEAKER) (test xqxl=306) 12.7 GM/DL 11.2-15.7 HEMATOCRIT (BEAKER) (test qanc=136) 37.0 % 34.1-44.9 MEAN CORPUSCULAR VOLUME (BEAKER) (test cueu=447) 88.3 fL 79.4-94.8 MEAN CORPUSCULAR HEMOGLOBIN (BEAKER) (test edpj=906) 30.3 pg 25.6-32.2 MEAN CORPUSCULAR HEMOGLOBIN CONC (BEAKER) (test flgn=111) 34.3 GM/DL 32.2-35.5 RED CELL DISTRIBUTION WIDTH (BEAKER) (test jgcw=037) 12.8 % 11.7-14.4 PLATELET COUNT (BEAKER) (test dxea=167) 211 K/CU MM 150-450 MEAN PLATELET VOLUME (BEAKER) (test yuqa=812) 10.0 fL 9.4-12.3 NUCLEATED RED BLOOD CELLS (BEAKER) (test ttrd=413) 0 /100 WBC 0-0 NEUTROPHILS RELATIVE PERCENT (BEAKER) (test hfok=061) 63 % LYMPHOCYTES RELATIVE PERCENT (BEAKER) (test xwri=125) 14 % MONOCYTES RELATIVE PERCENT (BEAKER) (test lwdv=497) 17 % EOSINOPHILS RELATIVE PERCENT (BEAKER) (test qdau=264) 3 % BASOPHILS RELATIVE PERCENT (BEAKER) (test efbw=615) 1 % NEUTROPHILS ABSOLUTE COUNT (BEAKER) (test rpwq=365) 4.67 K/ L 1.56-6.13 LYMPHOCYTES ABSOLUTE COUNT (BEAKER) (test kiwb=365) 1.06 K/ L 1.18-3.74 MONOCYTES ABSOLUTE COUNT (BEAKER) (test xfgr=507) 1.29 K/ L 0.24-0.36 EOSINOPHILS ABSOLUTE COUNT (BEAKER) (test mzcv=881) 0.21 K/ L 0.04-0.36 BASOPHILS ABSOLUTE COUNT (BEAKER) (test sfpv=266) 0.08 K/ L 0.01-0.08 IMMATURE GRANULOCYTES-RELATIVE PERCENT (BEAKER) (test yenq=2836) 2 % 0-1 POCT-GLUCOSE [id number] 22:14:00* Test Item Value Reference Range Comments POC-GLUCOSE METER (BEAKER) (test zzvr=7203) 103 mg/dL 70-[address] [facility] [address] [facility] [address] BASIC METABOLIC [id number] 17:45:00* Test Item Value Reference Range Comments SODIUM (BEAKER) (test eqzm=955) 129 meq/L 136-145 POTASSIUM (BEAKER) (test vmiq=583) 4.2 meq/L 3.5-5.1 CHLORIDE (BEAKER) (test kzvn=065) 96 meq/L 98-107 CO2 (BEAKER) (test rojv=594) 26 meq/L 22-29 BLOOD UREA NITROGEN (BEAKER) (test mbyb=854) 13 mg/dL 7-21 CREATININE (BEAKER) (test qyyo=245) 0.76 mg/dL 0.57-1.25 GLUCOSE RANDOM (BEAKER) (test zgfh=780) 100 mg/dL 70-105 CALCIUM (BEAKER) (test rxhc=111) 8.5 mg/dL 8.4-10.2 EGFR (BEAKER) (test ldwb=3621) 74 mL/min/1.73 sq m ESTIMATED GFR IS NOT ACCURATE CREATININE CLEARANCE IN PREDICTING GLOMERULAR FILTRATION RATE. ESTIMATED GFR IS NOT APPLICABLE FOR DIALYSIS PATIENTS. POCT-GLUCOSE [id number] 12:27:00* Test Item Value Reference Range Comments POC-GLUCOSE METER (BEAKER) (test uzzf=5448) 117 mg/dL 70-[address] [facility] [address] [place] [address] MISCELLANEOUS LAB [id number] 11:19:00* Test Item Value Reference Range Comments SCAN RESULT (test kcdv=[id number]) Result comments: NOT DETECTED Panel is negative for BioFire BCID-detectable orga nisms. Please refer to traditional culture and sensitivity results as they becom e available. Other organisms and resistance markers not contained in this PCR pa shona cannot be excluded and follow-up of traditional culture results is required. This sample was tested at the [facility] using the Biofire FilmArray Blood Culture ID Panel. This test is FDA cleared for in vitro diagnostic use and has been verified and approved by the [facility] for clinical use. Reference Range: Not DetectedPOCT-GLUCOSE [id number] 08:11:00* Test Item Value Reference Range Comments POC-GLUCOSE METER (BEAKER) (test loee=1470) 99 mg/dL 70-[address] [facility] [address] [place] [address] BASIC METABOLIC [id number] 05:39:00* Test Item Value Reference Range Comments SODIUM (BEAKER) (test bmqm=777) 129 meq/L 136-145 POTASSIUM (BEAKER) (test pgbj=223) 3.8 meq/L 3.5-5.1 CHLORIDE (BEAKER) (test wxmx=342) 98 meq/L 98-107 CO2 (BEAKER) (test xffz=508) 23 meq/L 22-29 BLOOD UREA NITROGEN (BEAKER) (test qhgm=735) 9 mg/dL 7-21 CREATININE (BEAKER) (test jvon=495) 0.74 mg/dL 0.57-1.25 GLUCOSE RANDOM (BEAKER) (test dsnc=852) 87 mg/dL 70-105 CALCIUM (BEAKER) (test kfht=885) 8.3 mg/dL 8.4-10.2 EGFR (BEAKER) (test sfpj=1571) 76 mL/min/1.73 sq m ESTIMATED GFR IS NOT ACCURATE CREATININE CLEARANCE IN PREDICTING GLOMERULAR FILTRATION RATE. ESTIMATED GFR IS NOT APPLICABLE FOR DIALYSIS PATIENTS. CBC W/PLT COUNT & AUTO [id number] 05:25:00* Test Item Value Reference Range Comments WHITE BLOOD CELL COUNT (BEAKER) (test bfqu=685) 6.7 K/ L 3.5-10.5 RED BLOOD CELL COUNT (BEAKER) (test wkxp=148) 4.05 M/ L 3.93-5.22 HEMOGLOBIN (BEAKER) (test trdr=713) 12.5 GM/DL 11.2-15.7 HEMATOCRIT (BEAKER) (test iabc=020) 35.9 % 34.1-44.9 MEAN CORPUSCULAR VOLUME (BEAKER) (test lubj=003) 88.6 fL 79.4-94.8 MEAN CORPUSCULAR HEMOGLOBIN (BEAKER) (test mwzz=504) 30.9 pg 25.6-32.2 MEAN CORPUSCULAR HEMOGLOBIN CONC (BEAKER) (test vtlr=325) 34.8 GM/DL 32.2-35.5 RED CELL DISTRIBUTION WIDTH (BEAKER) (test ebeu=995) 12.8 % 11.7-14.4 PLATELET COUNT (BEAKER) (test kgdn=036) 182 K/CU MM 150-450 MEAN PLATELET VOLUME (BEAKER) (test dklo=179) 10.5 fL 9.4-12.3 NUCLEATED RED BLOOD CELLS (BEAKER) (test hfez=050) 0 /100 WBC 0-0 NEUTROPHILS RELATIVE PERCENT (BEAKER) (test xmoe=687) 63 % LYMPHOCYTES RELATIVE PERCENT (BEAKER) (test cwht=066) 16 % MONOCYTES RELATIVE PERCENT (BEAKER) (test vgnd=650) 17 % EOSINOPHILS RELATIVE PERCENT (BEAKER) (test hwyg=433) 2 % BASOPHILS RELATIVE PERCENT (BEAKER) (test pdlz=969) 1 % NEUTROPHILS ABSOLUTE COUNT (BEAKER) (test rgzi=355) 4.21 K/ L 1.56-6.13 LYMPHOCYTES ABSOLUTE COUNT (BEAKER) (test fexk=679) 1.05 K/ L 1.18-3.74 MONOCYTES ABSOLUTE COUNT (BEAKER) (test eckp=286) 1.11 K/ L 0.24-0.36 EOSINOPHILS ABSOLUTE COUNT (BEAKER) (test ewpq=783) 0.14 K/ L 0.04-0.36 BASOPHILS ABSOLUTE COUNT (BEAKER) (test mbmo=606) 0.07 K/ L 0.01-0.08 IMMATURE GRANULOCYTES-RELATIVE PERCENT (BEAKER) (test dhtc=1901) 2 % 0-1 POCT-GLUCOSE [id number] 21:51:00* Test Item Value Reference Range Comments POC-GLUCOSE METER (BEAKER) (test hruu=1332) 118 mg/dL 70-110 TESTED AT [address] [address] BASIC METABOLIC [id number] 17:54:00* Test Item Value Reference Range Comments SODIUM (BEAKER) (test ktnb=097) 125 meq/L 136-145 POTASSIUM (BEAKER) (test ciqo=868) 4.7 meq/L 3.5-5.1 Specimen slightly hemolyzed CHLORIDE (BEAKER) (test tbei=011) 93 meq/L 98-107 CO2 (BEAKER) (test cyta=450) 22 meq/L 22-29 BLOOD UREA NITROGEN (BEAKER) (test junc=088) 11 mg/dL 7-21 CREATININE (BEAKER) (test xpul=080) 0.75 mg/dL 0.57-1.25 Specimen slightly hemolyzed GLUCOSE RANDOM (BEAKER) (test qgkx=739) 104 mg/dL 70-105 CALCIUM (BEAKER) (test ddnl=798) 8.4 mg/dL 8.4-10.2 EGFR (BEAKER) (test mahd=8059) 75 mL/min/1.73 sq m ESTIMATED GFR IS NOT ACCURATE CREATININE CLEARANCE IN PREDICTING GLOMERULAR FILTRATION RATE. ESTIMATED GFR IS NOT APPLICABLE FOR DIALYSIS PATIENTS. SODIUM, RANDOM [id number] 12:36:00* Test Item Value Reference Range Comments SODIUM URINE (BEAKER) (test cqjq=144) < meq/L Reference Range: No NormalsOSMOLALITY, [id number] 12:28:00* Test Item Value Reference Range Comments OSMOLALITY URINE (BEAKER) (test naaf=225) 205 mOsm/kg 40-1400 BASIC METABOLIC [id number] 10:24:00* Test Item Value Reference Range Comments SODIUM (BEAKER) (test ekzf=952) 126 meq/L 136-145 POTASSIUM (BEAKER) (test gqcj=794) 5.3 meq/L 3.5-5.1 Specimen slightly hemolyzed CHLORIDE (BEAKER) (test qyfg=253) 97 meq/L 98-107 CO2 (BEAKER) (test eesj=512) 20 meq/L 22-29 BLOOD UREA NITROGEN (BEAKER) (test oxkh=142) 7 mg/dL 7-21 CREATININE (BEAKER) (test csnr=387) 0.74 mg/dL 0.57-1.25 Specimen slightly hemolyzed GLUCOSE RANDOM (BEAKER) (test ldfm=187) 123 mg/dL 70-105 CALCIUM (BEAKER) (test amdp=435) 8.4 mg/dL 8.4-10.2 EGFR (BEAKER) (test vgrr=6483) 76 mL/min/1.73 sq m ESTIMATED GFR IS NOT ACCURATE CREATININE CLEARANCE IN PREDICTING GLOMERULAR FILTRATION RATE. ESTIMATED GFR IS NOT APPLICABLE FOR DIALYSIS PATIENTS. URINE [id number] 09:48:00* Test Item Value Reference Range Comments CULTURE (BEAKER) (test dxpw=6299) KLEBSIELLA PNEUMONIAE >100,000 col/mL Klebsiella pneumoniae Amikacin (test code=1) Ampicillin + Sulbactam (test code=6) Aztreonam (test code=32) Cefepime (test code=51) Cefoxitin (test code=68) Ceftazidime (test code=27) Ceftriaxone (test code=52) Ertapenem (test code=38) Gentamicin (test code=18) Levofloxacin (test code=22) Meropenem (test code=34) Nitrofurantoin (test code=23) Piperacillin + Tazobactam (test code=29) Tetracycline (test code=2) Tobramycin (test code=25) Trimethoprim + Sulfamethoxazole (test code=47) CALCIUM, [id number] 05:17:00* Test Item Value Reference Range Comments CALCIUM IONIZED (BEAKER) (test qmcj=574) 1.08 mmol/L 1.12-1.27 PH, BLOOD (BEAKER) (test zpcf=9171) 7.45 BASIC METABOLIC [id number] 05:00:00* Test Item Value Reference Range Comments SODIUM (BEAKER) (test flyc=533) 126 meq/L 136-145 POTASSIUM (BEAKER) (test tljp=606) 3.6 meq/L 3.5-5.1 CHLORIDE (BEAKER) (test kqkn=746) 94 meq/L 98-107 CO2 (BEAKER) (test cwsd=387) 22 meq/L 22-29 BLOOD UREA NITROGEN (BEAKER) (test smoy=902) 7 mg/dL 7-21 CREATININE (BEAKER) (test dzvs=783) 0.70 mg/dL 0.57-1.25 GLUCOSE RANDOM (BEAKER) (test suce=939) 102 mg/dL 70-105 CALCIUM (BEAKER) (test lrpd=201) 8.4 mg/dL 8.4-10.2 EGFR (BEAKER) (test tuuj=1192) 81 mL/min/1.73 sq m ESTIMATED GFR IS NOT ACCURATE CREATININE CLEARANCE IN PREDICTING GLOMERULAR FILTRATION RATE. ESTIMATED GFR IS NOT APPLICABLE FOR DIALYSIS PATIENTS. CBC W/PLT COUNT & AUTO [id number] 04:31:00* Test Item Value Reference Range Comments WHITE BLOOD CELL COUNT (BEAKER) (test beqb=339) 8.6 K/ L 3.5-10.5 RED BLOOD CELL COUNT (BEAKER) (test ieyw=685) 4.38 M/ L 3.93-5.22 HEMOGLOBIN (BEAKER) (test jkge=055) 13.4 GM/DL 11.2-15.7 HEMATOCRIT (BEAKER) (test abps=274) 38.9 % 34.1-44.9 MEAN CORPUSCULAR VOLUME (BEAKER) (test odbj=688) 88.8 fL 79.4-94.8 MEAN CORPUSCULAR HEMOGLOBIN (BEAKER) (test mdcr=143) 30.6 pg 25.6-32.2 MEAN CORPUSCULAR HEMOGLOBIN CONC (BEAKER) (test ugmm=616) 34.4 GM/DL 32.2-35.5 RED CELL DISTRIBUTION WIDTH (BEAKER) (test dzne=853) 12.4 % 11.7-14.4 PLATELET COUNT (BEAKER) (test ushg=870) 174 K/CU MM 150-450 MEAN PLATELET VOLUME (BEAKER) (test lagn=042) 10.8 fL 9.4-12.3 NUCLEATED RED BLOOD CELLS (BEAKER) (test vjov=233) 0 /100 WBC 0-0 NEUTROPHILS RELATIVE PERCENT (BEAKER) (test xtja=664) 72 % LYMPHOCYTES RELATIVE PERCENT (BEAKER) (test fhiq=590) 11 % MONOCYTES RELATIVE PERCENT (BEAKER) (test xmii=265) 15 % EOSINOPHILS RELATIVE PERCENT (BEAKER) (test alkk=622) 1 % BASOPHILS RELATIVE PERCENT (BEAKER) (test iyoa=769) 1 % NEUTROPHILS ABSOLUTE COUNT (BEAKER) (test erri=252) 6.17 K/ L 1.56-6.13 LYMPHOCYTES ABSOLUTE COUNT (BEAKER) (test nyrd=374) 0.98 K/ L 1.18-3.74 MONOCYTES ABSOLUTE COUNT (BEAKER) (test ecgw=669) 1.28 K/ L 0.24-0.36 EOSINOPHILS ABSOLUTE COUNT (BEAKER) (test wzgh=940) 0.08 K/ L 0.04-0.36 BASOPHILS ABSOLUTE COUNT (BEAKER) (test zngn=943) 0.04 K/ L 0.01-0.08 IMMATURE GRANULOCYTES-RELATIVE PERCENT (BEAKER) (test wtub=0267) 1 % 0-1 BASIC METABOLIC [id number] 00:09:00* Test Item Value Reference Range Comments SODIUM (BEAKER) (test rtxh=533) 121 meq/L 136-145 POTASSIUM (BEAKER) (test jszz=534) 4.1 meq/L 3.5-5.1 CHLORIDE (BEAKER) (test rmmf=430) 92 meq/L 98-107 CO2 (BEAKER) (test nquq=248) 21 meq/L 22-29 BLOOD UREA NITROGEN (BEAKER) (test eiqj=951) 8 mg/dL 7-21 CREATININE (BEAKER) (test vjsp=826) 0.72 mg/dL 0.57-1.25 GLUCOSE RANDOM (BEAKER) (test xfuu=096) 104 mg/dL 70-105 CALCIUM (BEAKER) (test dlgi=676) 8.3 mg/dL 8.4-10.2 EGFR (BEAKER) (test jbrx=7876) 79 mL/min/1.73 sq m ESTIMATED GFR IS NOT ACCURATE CREATININE CLEARANCE IN PREDICTING GLOMERULAR FILTRATION RATE. ESTIMATED GFR IS NOT APPLICABLE FOR DIALYSIS PATIENTS. BASIC METABOLIC [id number] 19:12:00* Test Item Value Reference Range Comments SODIUM (BEAKER) (test cxnv=732) 119 meq/L 136-145 POTASSIUM (BEAKER) (test wsbn=980) 4.4 meq/L 3.5-5.1 Specimen slightly hemolyzed CHLORIDE (BEAKER) (test sgoh=586) 89 meq/L 98-107 CO2 (BEAKER) (test ylar=008) 22 meq/L 22-29 BLOOD UREA NITROGEN (BEAKER) (test hrlv=966) 7 mg/dL 7-21 CREATININE (BEAKER) (test tusc=544) 0.77 mg/dL 0.57-1.25 Specimen slightly hemolyzed GLUCOSE RANDOM (BEAKER) (test mcwa=543) 142 mg/dL 70-105 CALCIUM (BEAKER) (test iede=489) 8.1 mg/dL 8.4-10.2 EGFR (BEAKER) (test nqjn=7788) 73 mL/min/1.73 sq m ESTIMATED GFR IS NOT ACCURATE CREATININE CLEARANCE IN PREDICTING GLOMERULAR FILTRATION RATE. ESTIMATED GFR IS NOT APPLICABLE FOR DIALYSIS PATIENTS. BASIC METABOLIC [id number] 15:25:00* Test Item Value Reference Range Comments SODIUM (BEAKER) (test kqmf=358) 120 meq/L 136-145 POTASSIUM (BEAKER) (test adcq=547) 4.3 meq/L 3.5-5.1 CHLORIDE (BEAKER) (test yrgi=975) 87 meq/L 98-107 CO2 (BEAKER) (test weia=861) 23 meq/L 22-29 BLOOD UREA NITROGEN (BEAKER) (test emro=387) 8 mg/dL 7-21 CREATININE (BEAKER) (test krip=898) 0.75 mg/dL 0.57-1.25 GLUCOSE RANDOM (BEAKER) (test qnaz=017) 101 mg/dL 70-105 CALCIUM (BEAKER) (test zvnt=555) 8.1 mg/dL 8.4-10.2 EGFR (BEAKER) (test bpuj=9545) 75 mL/min/1.73 sq m ESTIMATED GFR IS NOT ACCURATE CREATININE CLEARANCE IN PREDICTING GLOMERULAR FILTRATION RATE. ESTIMATED GFR IS NOT APPLICABLE FOR DIALYSIS PATIENTS. SODIUM NA-STAT [id number] 12:27:00* Test Item Value Reference Range Comments SODIUM (BEAKER) (test iezo=231) 118 meq/L 135-148 BASIC METABOLIC [id number] 11:05:00* Test Item Value Reference Range Comments SODIUM (BEAKER) (test pbcm=541) 123 meq/L 136-145 POTASSIUM (BEAKER) (test kfnb=551) 4.4 meq/L 3.5-5.1 CHLORIDE (BEAKER) (test bjzp=002) 90 meq/L 98-107 CO2 (BEAKER) (test ebep=568) 26 meq/L 22-29 BLOOD UREA NITROGEN (BEAKER) (test zjco=879) 6 mg/dL 7-21 CREATININE (BEAKER) (test fzdw=766) 0.77 mg/dL 0.57-1.25 GLUCOSE RANDOM (BEAKER) (test dlzc=140) 108 mg/dL 70-105 CALCIUM (BEAKER) (test pran=650) 8.4 mg/dL 8.4-10.2 EGFR (BEAKER) (test otpt=4871) 73 mL/min/1.73 sq m ESTIMATED GFR IS NOT ACCURATE CREATININE CLEARANCE IN PREDICTING GLOMERULAR FILTRATION RATE. ESTIMATED GFR IS NOT APPLICABLE FOR DIALYSIS PATIENTS. [id number] 09:51:00* Test Item Value Reference Range Comments CORTISOL, TOTAL (BEAKER) (test vhuo=1200) 12.8 ug/dL 3.7-19.4 [id number] 09:30:00* Test Item Value Reference Range Comments MAGNESIUM (BEAKER) (test pbir=539) 2.2 mg/dL 1.6-2.6 BASIC METABOLIC [id number] 09:30:00* Test Item Value Reference Range Comments SODIUM (BEAKER) (test ltyc=159) 121 meq/L 136-145 POTASSIUM (BEAKER) (test jnzj=813) 3.6 meq/L 3.5-5.1 CHLORIDE (BEAKER) (test jabx=863) 90 meq/L 98-107 CO2 (BEAKER) (test fuxi=499) 24 meq/L 22-29 BLOOD UREA NITROGEN (BEAKER) (test biyn=681) 6 mg/dL 7-21 CREATININE (BEAKER) (test ycmx=596) 0.70 mg/dL 0.57-1.25 GLUCOSE RANDOM (BEAKER) (test wjok=725) 143 mg/dL 70-105 CALCIUM (BEAKER) (test wkwz=651) 8.4 mg/dL 8.4-10.2 EGFR (BEAKER) (test klwa=4428) 81 mL/min/1.73 sq m ESTIMATED GFR IS NOT ACCURATE CREATININE CLEARANCE IN PREDICTING GLOMERULAR FILTRATION RATE. ESTIMATED GFR IS NOT APPLICABLE FOR DIALYSIS PATIENTS. CBC W/PLT COUNT & AUTO [id number] 07:52:00* Test Item Value Reference Range Comments WHITE BLOOD CELL COUNT (BEAKER) (test fcgh=036) 15.1 K/ L 3.5-10.5 RED BLOOD CELL COUNT (BEAKER) (test brpq=875) 4.68 M/ L 3.93-5.22 HEMOGLOBIN (BEAKER) (test kytt=390) 14.2 GM/DL 11.2-15.7 HEMATOCRIT (BEAKER) (test kbub=954) 40.9 % 34.1-44.9 MEAN CORPUSCULAR VOLUME (BEAKER) (test yqdn=179) 87.4 fL 79.4-94.8 MEAN CORPUSCULAR HEMOGLOBIN (BEAKER) (test vpbx=434) 30.3 pg 25.6-32.2 MEAN CORPUSCULAR HEMOGLOBIN CONC (BEAKER) (test efqx=955) 34.7 GM/DL 32.2-35.5 RED CELL DISTRIBUTION WIDTH (BEAKER) (test taqg=550) 11.9 % 11.7-14.4 PLATELET COUNT (BEAKER) (test znkk=969) 179 K/CU MM 150-450 MEAN PLATELET VOLUME (BEAKER) (test cvvv=699) 10.4 fL 9.4-12.3 NUCLEATED RED BLOOD CELLS (BEAKER) (test hwzu=459) 0 /100 WBC 0-0 (CELLAVISION MANUAL DIFF)2018-02-06 07:52:00* Test Item Value Reference Range Comments NEUTROPHILS - REL (CELLAVISION)(BEAKER) (test adcf=4780) 90 % LYMPHOCYTES - REL (CELLAVISION)(BEAKER) (test iwft=1397) 3 % MONOCYTES - REL (CELLAVISION)(BEAKER) (test jbnj=2246) 5 % BANDS - REL (CELLAVISION)(BEAKER) (test kxee=3249) 1 % 0-10 ATYPICAL LYMPHOCYTES - REL (CELLAVISION)(BEAKER) (test geeo=3840) 1 % 0-0 NEUTROPHILS - ABS (CELLAVISION)(BEAKER) (test qcei=3602) 13.59 K/ul 1.56-6.13 LYMPHOCYTES - ABS (CELLAVISION)(BEAKER) (test kxmz=3681) 0.45 K/ul 1.18-3.74 MONOCYTES - ABS (CELLAVISION)(BEAKER) (test rmcr=7445) 0.76 K/uL 0.24-0.36 BANDS - ABS (CELLAVISION)(BEAKER) (test tpiq=6830) 0.15 K/uL 0.00-0.80 ATYPICAL LYMPHOCYTES - ABS (CELLAVISION)(BEAKER) (test nneo=3325) 0.15 K/uL 0.00-0.00 TOTAL COUNTED (BEAKER) (test wcbh=8499) 100 RBC MORPHOLOGY (BEAKER) (test ciqt=430) Normal CLUMPED PLATELETS (BEAKER) (test tmbx=792) Present SMUDGE CELLS (BEAKER) (test dmlt=1289) Present GIANT PLATELETS (BEAKER) (test exke=096) Present ARTIFACT (CELLAVISION)(BEAKER) (test iwxd=1326) Present PLATELET CONCENTRATION (CELLAVISION)(BEAKER) (test wcwr=5591) Adequate Received comment: User comments: Slide comments: BASIC METABOLIC [id number] 06:21:00* Test Item Value Reference Range Comments SODIUM (BEAKER) (test zepv=309) 120 meq/L 136-145 POTASSIUM (BEAKER) (test cjuw=000) 3.3 meq/L 3.5-5.1 CHLORIDE (BEAKER) (test knzx=663) 88 meq/L 98-107 CO2 (BEAKER) (test fmzp=486) 25 meq/L 22-29 BLOOD UREA NITROGEN (BEAKER) (test lvyh=662) 6 mg/dL 7-21 CREATININE (BEAKER) (test yinr=848) 0.72 mg/dL 0.57-1.25 GLUCOSE RANDOM (BEAKER) (test lhww=007) 145 mg/dL 70-105 CALCIUM (BEAKER) (test nabn=857) 8.3 mg/dL 8.4-10.2 EGFR (BEAKER) (test sguq=2447) 79 mL/min/1.73 sq m ESTIMATED GFR IS NOT ACCURATE CREATININE CLEARANCE IN PREDICTING GLOMERULAR FILTRATION RATE. ESTIMATED GFR IS NOT APPLICABLE FOR DIALYSIS PATIENTS. OSMOLALITY, [id number] 05:42:00* Test Item Value Reference Range Comments OSMOLALITY, SERUM (BEAKER) (test gicy=118) 249 mOsm/kg 275-295 OSMOLALITY, [id number] 05:41:00* Test Item Value Reference Range Comments OSMOLALITY URINE (BEAKER) (test qqyi=084) 53 mOsm/kg 40-1400 SODIUM, RANDOM [id number] 04:35:00* Test Item Value Reference Range Comments SODIUM URINE (BEAKER) (test vsqn=776) < meq/L Reference Range: No NormalsBASIC METABOLIC [id number] 04:35:00* Test Item Value Reference Range Comments SODIUM (BEAKER) (test dsiw=498) 119 meq/L 136-145 POTASSIUM (BEAKER) (test cgtp=482) 3.4 meq/L 3.5-5.1 CHLORIDE (BEAKER) (test zdke=224) 87 meq/L 98-107 CO2 (BEAKER) (test vamu=012) 23 meq/L 22-29 BLOOD UREA NITROGEN (BEAKER) (test fcsm=464) 7 mg/dL 7-21 CREATININE (BEAKER) (test dypu=924) 0.66 mg/dL 0.57-1.25 GLUCOSE RANDOM (BEAKER) (test goeo=329) 129 mg/dL 70-105 CALCIUM (BEAKER) (test kvrc=732) 8.3 mg/dL 8.4-10.2 EGFR (BEAKER) (test gdgv=7629) 87 mL/min/1.73 sq m ESTIMATED GFR IS NOT ACCURATE CREATININE CLEARANCE IN PREDICTING GLOMERULAR FILTRATION RATE. ESTIMATED GFR IS NOT APPLICABLE FOR DIALYSIS PATIENTS. BASIC METABOLIC [id number] 02:13:00* Test Item Value Reference Range Comments SODIUM (BEAKER) (test dhqx=785) 118 meq/L 136-145 POTASSIUM (BEAKER) (test clkg=855) 3.4 meq/L 3.5-5.1 CHLORIDE (BEAKER) (test rurm=793) 83 meq/L 98-107 CO2 (BEAKER) (test qdni=758) 25 meq/L 22-29 BLOOD UREA NITROGEN (BEAKER) (test tzrn=980) 7 mg/dL 7-21 CREATININE (BEAKER) (test ixbr=534) 0.71 mg/dL 0.57-1.25 GLUCOSE RANDOM (BEAKER) (test dkib=723) 104 mg/dL 70-105 CALCIUM (BEAKER) (test tmga=022) 8.9 mg/dL 8.4-10.2 EGFR (BEAKER) (test kkdd=5282) 80 mL/min/1.73 sq m ESTIMATED GFR IS NOT ACCURATE CREATININE CLEARANCE IN PREDICTING GLOMERULAR FILTRATION RATE. ESTIMATED GFR IS NOT APPLICABLE FOR DIALYSIS PATIENTS. BASIC METABOLIC [id number] 23:27:00* Test Item Value Reference Range Comments SODIUM (BEAKER) (test srum=587) 116 meq/L 136-145 POTASSIUM (BEAKER) (test hcwe=675) 3.4 meq/L 3.5-5.1 CHLORIDE (BEAKER) (test cjeh=784) 83 meq/L 98-107 CO2 (BEAKER) (test wcja=762) 22 meq/L 22-29 BLOOD UREA NITROGEN (BEAKER) (test gvlz=149) 8 mg/dL 7-21 CREATININE (BEAKER) (test sbsc=887) 0.71 mg/dL 0.57-1.25 GLUCOSE RANDOM (BEAKER) (test wdzz=150) 123 mg/dL 70-105 CALCIUM (BEAKER) (test mxzk=874) 8.3 mg/dL 8.4-10.2 EGFR (BEAKER) (test oerx=3054) 80 mL/min/1.73 sq m ESTIMATED GFR IS NOT ACCURATE CREATININE CLEARANCE IN PREDICTING GLOMERULAR FILTRATION RATE. ESTIMATED GFR IS NOT APPLICABLE FOR DIALYSIS PATIENTS. POTASSIUM, RANDOM [id number] 21:34:00* Test Item Value Reference Range Comments POTASSIUM URINE (BEAKER) (test hgaa=493) 22.8 meq/L Reference Range: No NormalsBASIC METABOLIC [id number] 21:16:00* Test Item Value Reference Range Comments SODIUM (BEAKER) (test slse=623) 115 meq/L 136-145 POTASSIUM (BEAKER) (test zmlx=196) 3.2 meq/L 3.5-5.1 CHLORIDE (BEAKER) (test yzvn=283) 81 meq/L 98-107 CO2 (BEAKER) (test ewpn=635) 22 meq/L 22-29 BLOOD UREA NITROGEN (BEAKER) (test imsg=816) 8 mg/dL 7-21 CREATININE (BEAKER) (test myhg=834) 0.74 mg/dL 0.57-1.25 GLUCOSE RANDOM (BEAKER) (test cihj=976) 173 mg/dL 70-105 CALCIUM (BEAKER) (test hzoy=768) 8.7 mg/dL 8.4-10.2 EGFR (BEAKER) (test stjw=2348) 76 mL/min/1.73 sq m ESTIMATED GFR IS NOT ACCURATE CREATININE CLEARANCE IN PREDICTING GLOMERULAR FILTRATION RATE. ESTIMATED GFR IS NOT APPLICABLE FOR DIALYSIS PATIENTS. OSMOLALITY, [id number] 20:48:00* Test Item Value Reference Range Comments OSMOLALITY, SERUM (BEAKER) (test psox=048) 243 mOsm/kg 275-295 OSMOLALITY, [id number] 20:36:00* Test Item Value Reference Range Comments OSMOLALITY URINE (BEAKER) (test srxf=035) 119 mOsm/kg 40-1400 SODIUM, RANDOM [id number] 19:42:00* Test Item Value Reference Range Comments SODIUM URINE (BEAKER) (test vohz=843) < meq/L Reference Range: No NormalsCHLORIDE, RANDOM [id number] 19:42:00* Test Item Value Reference Range Comments CHLORIDE URINE (BEAKER) (test bqex=024) < meq/L Reference Range: No NormalsTSH/FREE T4 IF [id number] 19:35:00* Test Item Value Reference Range Comments THYROID STIMULATING HORMONE (BEAKER) (test jqsr=302) 2.09 uIU/mL 0.35-4.94 RAD, CHEST, 1 VIEW, NON [id number] 19:15:00Reason for exam:-> leukocytosisReason for exam:->FALLShould this be performed at the bedside?->Yes FINAL REPORT History: Leukocytosis, fall. Comparison: 01/20/2018 Findings: A single view of the chest is submitted. The cardiac silhouette is within normal limits for size. There is atherosclerotic calcification of the aorta. A retrocardiac hiatal hernia is redemonstrated. The lungs are hyperinfl ated. There is no focal consolidation, pneumothorax, large pleural effusion or e vidence of overt pulmonary edema. There is no acute bony abnormality. Impressi on: No acute abnormality. Signed: Teodoro Mulligan MDReport Verified Date/Time: 19:15:38 Reading Location: [address] Reading Room El ectronically signed by: TEODORO MULLIGAN M.D. on 02/05/2018 07:15 PM CREATININE, RANDOM [id number] 19:12:00* Test Item Value Reference Range Comments CREATININE URINE (BEAKER) (test xunb=765) 16.1 mg/dL Reference Range: No NormalsBASIC METABOLIC [id number] 16:49:00* Test Item Value Reference Range Comments SODIUM (BEAKER) (test lmxd=814) 112 meq/L 136-145 POTASSIUM (BEAKER) (test ylwn=670) 3.2 meq/L 3.5-5.1 CHLORIDE (BEAKER) (test yrgv=867) 79 meq/L 98-107 CO2 (BEAKER) (test jlwd=252) 23 meq/L 22-29 BLOOD UREA NITROGEN (BEAKER) (test xakl=325) 9 mg/dL 7-21 CREATININE (BEAKER) (test qlyo=561) 0.65 mg/dL 0.57-1.25 GLUCOSE RANDOM (BEAKER) (test vsty=899) 127 mg/dL 70-105 CALCIUM (BEAKER) (test ugrn=020) 8.5 mg/dL 8.4-10.2 EGFR (BEAKER) (test ulru=9037) 88 mL/min/1.73 sq m ESTIMATED GFR IS NOT ACCURATE CREATININE CLEARANCE IN PREDICTING GLOMERULAR FILTRATION RATE. ESTIMATED GFR IS NOT APPLICABLE FOR DIALYSIS PATIENTS. CBC W/PLT COUNT & AUTO [id number] 15:54:00* Test Item Value Reference Range Comments WHITE BLOOD CELL COUNT (BEAKER) (test qvwn=568) 19.6 K/ L 3.5-10.5 RED BLOOD CELL COUNT (BEAKER) (test skcb=554) 4.43 M/ L 3.93-5.22 HEMOGLOBIN (BEAKER) (test hoge=963) 13.6 GM/DL 11.2-15.7 HEMATOCRIT (BEAKER) (test caqx=874) 37.5 % 34.1-44.9 MEAN CORPUSCULAR VOLUME (BEAKER) (test gcwh=467) 84.7 fL 79.4-94.8 MEAN CORPUSCULAR HEMOGLOBIN (BEAKER) (test moru=277) 30.7 pg 25.6-32.2 MEAN CORPUSCULAR HEMOGLOBIN CONC (BEAKER) (test mnxv=327) 36.3 GM/DL 32.2-35.5 RED CELL DISTRIBUTION WIDTH (BEAKER) (test elfk=706) 11.8 % 11.7-14.4 PLATELET COUNT (BEAKER) (test zgku=871) 189 K/CU MM 150-450 MEAN PLATELET VOLUME (BEAKER) (test rkex=587) 11.3 fL 9.4-12.3 NUCLEATED RED BLOOD CELLS (BEAKER) (test hzkn=108) 0 /100 WBC 0-0 (CELLAVISION MANUAL DIFF)2018-02-05 15:54:00* Test Item Value Reference Range Comments NEUTROPHILS - REL (CELLAVISION)(BEAKER) (test feun=2656) 79 % LYMPHOCYTES - REL (CELLAVISION)(BEAKER) (test tmiy=6994) 1 % MONOCYTES - REL (CELLAVISION)(BEAKER) (test opkm=5235) 13 % BANDS - REL (CELLAVISION)(BEAKER) (test souf=5514) 4 % 0-10 ATYPICAL LYMPHOCYTES - REL (CELLAVISION)(BEAKER) (test qxpl=3614) 2 % 0-0 NEUTROPHILS - ABS (CELLAVISION)(BEAKER) (test igdr=1782) 15.48 K/ul 1.56-6.13 LYMPHOCYTES - ABS (CELLAVISION)(BEAKER) (test mydn=3476) 0.20 K/ul 1.18-3.74 MONOCYTES - ABS (CELLAVISION)(BEAKER) (test fnjy=6268) 2.55 K/uL 0.24-0.36 BANDS - ABS (CELLAVISION)(BEAKER) (test zfod=2077) 0.78 K/uL 0.00-0.80 ATYPICAL LYMPHOCYTES - ABS (CELLAVISION)(BEAKER) (test sakg=4903) 0.39 K/uL 0.00-0.00 TOTAL COUNTED (BEAKER) (test hnmr=3402) 100 RBC MORPHOLOGY (BEAKER) (test pxcr=103) Normal WBC MORPHOLOGY (BEAKER) (test yliq=984) Normal GIANT PLATELETS (BEAKER) (test qupt=356) Present ARTIFACT (CELLAVISION)(BEAKER) (test oqmr=9975) Present PLATELET CONCENTRATION (CELLAVISION)(BEAKER) (test ixhz=1854) Adequate Received comment: User comments: Slide comments: URINALYSIS W/ MICROSCOPIC 2018-02-05 15:13:00* Test Item Value Reference Range Comments COLOR (BEAKER) (test btdo=089) Yellow CLARITY (BEAKER) (test ssow=661) Hazy SPECIFIC GRAVITY UA (BEAKER) (test ikei=985) 1.005 1.001-1.035 PH UA (BEAKER) (test jsar=604) 8.0 5.0-8.0 PROTEIN UA (BEAKER) (test nwgk=223) 30 mg/dL Negative GLUCOSE UA (BEAKER) (test ptgs=535) Negative Negative KETONES UA (BEAKER) (test sesq=451) Negative Negative BILIRUBIN UA (BEAKER) (test nyld=806) Negative Negative BLOOD UA (BEAKER) (test xgrx=933) Trace Negative NITRITE UA (BEAKER) (test vfmd=933) Negative Negative LEUKOCYTE ESTERASE UA (BEAKER) (test xozl=864) Large Negative UROBILINOGEN UA (BEAKER) (test ylyu=439) 0.2 mg/dL 0.2-1.0 RBC UA (BEAKER) (test yawj=567) 11 /HPF WBC UA (BEAKER) (test fdye=194) 11 /HPF BACTERIA (BEAKER) (test slfz=961) Moderate SOURCE(BEAKER) (test tugu=9161) Urine, [place] CT, BRAIN, WITHOUT [id number] 14:25:00Reason for exam:->DYSURIAReason for exam:->FALLWhat is the patient's sedation requirement?->No SedationFINAL REPORT CT Head and Maxillofacial Clinical History: FALL TRAUMA Technique: Contiguous axial images through the head without contrast. Contiguous axial and coronal images through the maxillofacial sinuses without contrast. This exam was performed according to the departmental dose optimizatio n program which includes automated exposure control, adjustment of the mA and/or kV according to the patient size, and/or use of an iterative reconstruction josé hnique. Comparisons: None Findings: There is a forehead scalp swelling. There is no evidence of skull fracture or intracranial hemorrhage. There is mild periven tricular and subcortical white matter hypodensity which is nonspecific but donato tible with chronic microvascular ischemic change. There are atherosclerotic calc ifications of the intracranial circulation. There is mild generalized parenchyma l volume loss without hydrocephalus, midline shift, or apparent mass effect. Th ere is no evidence of facial fracture or retro-orbital hemorrhage. The nasal sep bladimir is deviated to the right with a right-sided septal spur. There is a left con yenni bullosa. The paranasal sinuses are well aerated. Impression: No evidence of skull fracture or intracranial hemorrhage. No facial fracture or retro-orbital hemorrhage. Forehead scalp swelling. Signed: Ayden Duarte MDReport Verified Hieu e/Time: 02/05/2018 14:25:14 Reading Location: [address] Neuro Reading Room , MAXILLOFACIAL AREA, WO [id number] 14:25:00FINAL REPORT CT Head and Maxillofacial Clinical History: [...] retro-orbital hemorrhage. Forehead scalp swelling. Signed: Ayden Duarte MDReport Verified Hieu e/Time: 02/05/2018 14:25:14 Reading Location: [facility] C013V Neuro Reading Room E [id number] 12:29:00* Test Item Value Reference Range Comments CULTURE (BEAKER) (test uufd=3443) Amikacin (test code=1) Ampicillin + Sulbactam (test code=6) Aztreonam (test code=32) Cefepime (test code=51) Cefoxitin (test code=68) Ceftazidime (test code=27) Ceftriaxone (test code=52) Ertapenem (test code=38) Gentamicin (test code=18) Levofloxacin (test code=22) Meropenem (test code=34) Nitrofurantoin (test code=23) Piperacillin + Tazobactam (test code=29) Tetracycline (test code=2) Tobramycin (test code=25) Trimethoprim + Sulfamethoxazole (test code=47) CULTURE (BEAKER) (test dfjp=8838) KLEBSIELLA PNEUMONIAE >100,000 col/mL Klebsiella pneumoniae Amikacin (test code=1) Ampicillin + Sulbactam (test code=6) Aztreonam (test code=32) Cefepime (test code=51) Cefoxitin (test code=68) Ceftazidime (test code=27) Ceftriaxone (test code=52) Ertapenem (test code=38) Gentamicin (test code=18) Levofloxacin (test code=22) Meropenem (test code=34) Nitrofurantoin (test code=23) Piperacillin + Tazobactam (test code=29) Tetracycline (test code=2) Tobramycin (test code=25) Trimethoprim + Sulfamethoxazole (test code=47) CULTURE (BEAKER) (test rcsq=3355) >100,000 col/mL Klebsiella pneumoniaeof a second type POCT-GLUCOSE [id number] 11:10:00* Test Item Value Reference Range Comments POC-GLUCOSE METER (BEAKER) (test xunc=2469) 171 mg/dL 70-[address] [facility] [address] [place] [address] BASIC METABOLIC [id number] 06:00:00* Test Item Value Reference Range Comments SODIUM (BEAKER) (test ywnq=172) 130 meq/L 136-145 POTASSIUM (BEAKER) (test zown=618) 4.0 meq/L 3.5-5.1 CHLORIDE (BEAKER) (test tiph=497) 98 meq/L 98-107 CO2 (BEAKER) (test wzca=095) 24 meq/L 22-29 BLOOD UREA NITROGEN (BEAKER) (test ycjn=640) 7 mg/dL 7-21 CREATININE (BEAKER) (test ydty=116) 0.70 mg/dL 0.57-1.25 GLUCOSE RANDOM (BEAKER) (test unwr=218) 103 mg/dL 70-105 CALCIUM (BEAKER) (test nxsa=908) 8.3 mg/dL 8.4-10.2 EGFR (BEAKER) (test kgpk=0898) 81 mL/min/1.73 sq m ESTIMATED GFR IS NOT ACCURATE CREATININE CLEARANCE IN PREDICTING GLOMERULAR FILTRATION RATE. ESTIMATED GFR IS NOT APPLICABLE FOR DIALYSIS PATIENTS. CBC (HEMOGRAM ONLY)2017-09-07 05:15:00* Test Item Value Reference Range Comments WHITE BLOOD CELL COUNT (BEAKER) (test hbto=611) 10.9 K/ L 3.5-10.5 RED BLOOD CELL COUNT (BEAKER) (test ggma=875) 4.09 M/ L 3.93-5.22 HEMOGLOBIN (BEAKER) (test vkix=768) 12.4 GM/DL 11.2-15.7 HEMATOCRIT (BEAKER) (test kznx=372) 36.3 % 34.1-44.9 MEAN CORPUSCULAR VOLUME (BEAKER) (test shrh=266) 88.8 fL 79.4-94.8 MEAN CORPUSCULAR HEMOGLOBIN (BEAKER) (test mdhp=028) 30.3 pg 25.6-32.2 MEAN CORPUSCULAR HEMOGLOBIN CONC (BEAKER) (test rotp=121) 34.2 GM/DL 32.2-35.5 RED CELL DISTRIBUTION WIDTH (BEAKER) (test aopz=145) 12.2 % 11.7-14.4 PLATELET COUNT (BEAKER) (test pncl=896) 274 K/CU MM 150-450 MEAN PLATELET VOLUME (BEAKER) (test xbmm=186) 9.8 fL 9.4-12.3 NUCLEATED RED BLOOD CELLS (BEAKER) (test vqey=230) 0 /100 WBC 0-0 POCT-GLUCOSE [id number] 22:09:00* Test Item Value Reference Range Comments POC-GLUCOSE METER (BEAKER) (test srdx=3713) 147 mg/dL 70-[address] [facility] [address] [facility] [address] TSH/FREE T4 IF [id number] 20:12:00* Test Item Value Reference Range Comments THYROID STIMULATING HORMONE (BEAKER) (test edon=461) 2.45 uIU/mL 0.35-4.94 OSMOLALITY, [id number] 19:53:00* Test Item Value Reference Range Comments OSMOLALITY, SERUM (BEAKER) (test ffsv=726) 271 mOsm/kg 275-295 SODIUM, RANDOM [id number] 19:21:00* Test Item Value Reference Range Comments SODIUM URINE (BEAKER) (test zykt=997) < meq/L Reference Range: No NormalsOSMOLALITY, [id number] 19:06:00* Test Item Value Reference Range Comments OSMOLALITY URINE (BEAKER) (test qlem=710) 91 mOsm/kg 40-1400 [id number] 15:40:00* Test Item Value Reference Range Comments MAGNESIUM (BEAKER) (test zghi=015) 1.8 mg/dL 1.6-2.6 BASIC METABOLIC [id number] 15:40:00* Test Item Value Reference Range Comments SODIUM (BEAKER) (test xlqe=768) 124 meq/L 136-145 POTASSIUM (BEAKER) (test nhxu=328) 3.3 meq/L 3.5-5.1 CHLORIDE (BEAKER) (test fmpa=979) 91 meq/L 98-107 CO2 (BEAKER) (test ujgw=710) 24 meq/L 22-29 BLOOD UREA NITROGEN (BEAKER) (test pcsu=023) 10 mg/dL 7-21 CREATININE (BEAKER) (test sjua=385) 0.79 mg/dL 0.57-1.25 GLUCOSE RANDOM (BEAKER) (test rhnn=466) 204 mg/dL 70-105 CALCIUM (BEAKER) (test uejp=398) 9.0 mg/dL 8.4-10.2 EGFR (BEAKER) (test mykd=6770) 71 mL/min/1.73 sq m ESTIMATED GFR IS NOT ACCURATE CREATININE CLEARANCE IN PREDICTING GLOMERULAR FILTRATION RATE. ESTIMATED GFR IS NOT APPLICABLE FOR DIALYSIS PATIENTS. HEPATIC FUNCTION [id number] 15:40:00* Test Item Value Reference Range Comments TOTAL PROTEIN (BEAKER) (test wzem=265) 6.8 gm/dL 6.0-8.3 ALBUMIN (BEAKER) (test hhuz=1403) 3.8 g/dL 3.5-5.0 BILIRUBIN TOTAL (BEAKER) (test hnvy=701) 0.5 mg/dL 0.2-1.2 BILIRUBIN DIRECT (BEAKER) (test cavx=889) 0.2 mg/dL 0.1-0.5 ALKALINE PHOSPHATASE (BEAKER) (test nliy=793) 81 U/L 40-150 AST (SGOT) (BEAKER) (test nazs=063) 15 U/L 5-34 ALT (SGPT) (BEAKER) (test elew=821) 16 U/L 6-55 URINALYSIS W/ [id number] 15:26:00* Test Item Value Reference Range Comments COLOR (BEAKER) (test xvbb=689) Light Yellow CLARITY (BEAKER) (test xhgz=772) Clear SPECIFIC GRAVITY UA (BEAKER) (test wtku=796) 1.002 1.001-1.035 PH UA (BEAKER) (test gstb=004) 7.0 5.0-8.0 PROTEIN UA (BEAKER) (test kose=362) Negative Negative GLUCOSE UA (BEAKER) (test wdjt=585) 50 mg/dL Negative KETONES UA (BEAKER) (test hbtm=566) Negative Negative BILIRUBIN UA (BEAKER) (test fvgy=173) Negative Negative BLOOD UA (BEAKER) (test iiuz=182) Negative Negative NITRITE UA (BEAKER) (test vtrq=997) Negative Negative LEUKOCYTE ESTERASE UA (BEAKER) (test jreg=596) Large Negative UROBILINOGEN UA (BEAKER) (test psoo=697) 0.2 mg/dL 0.2-1.0 RBC UA (BEAKER) (test gcsn=676) 1 /HPF WBC UA (BEAKER) (test qffh=059) 33 /HPF BACTERIA (BEAKER) (test idpu=251) Many MUCUS (BEAKER) (test mxpz=2509) Rare SOURCE(BEAKER) (test pzef=9909) Urine, Voided CBC W/PLT COUNT & AUTO [id number] 15:18:00* Test Item Value Reference Range Comments WHITE BLOOD CELL COUNT (BEAKER) (test gdit=278) 13.6 K/ L 3.5-10.5 RED BLOOD CELL COUNT (BEAKER) (test tmzl=047) 4.21 M/ L 3.93-5.22 HEMOGLOBIN (BEAKER) (test jixg=260) 12.8 GM/DL 11.2-15.7 HEMATOCRIT (BEAKER) (test ikca=743) 37.0 % 34.1-44.9 MEAN CORPUSCULAR VOLUME (BEAKER) (test ejos=115) 87.9 fL 79.4-94.8 MEAN CORPUSCULAR HEMOGLOBIN (BEAKER) (test mzhn=886) 30.4 pg 25.6-32.2 MEAN CORPUSCULAR HEMOGLOBIN CONC (BEAKER) (test merx=906) 34.6 GM/DL 32.2-35.5 RED CELL DISTRIBUTION WIDTH (BEAKER) (test jmbl=532) 11.9 % 11.7-14.4 PLATELET COUNT (BEAKER) (test mhvn=871) 280 K/CU MM 150-450 MEAN PLATELET VOLUME (BEAKER) (test ruxt=844) 9.8 fL 9.4-12.3 NUCLEATED RED BLOOD CELLS (BEAKER) (test pxmz=790) 0 /100 WBC 0-0 NEUTROPHILS RELATIVE PERCENT (BEAKER) (test uftc=841) 82 % LYMPHOCYTES RELATIVE PERCENT (BEAKER) (test joqk=093) 4 % MONOCYTES RELATIVE PERCENT (BEAKER) (test riht=505) 12 % EOSINOPHILS RELATIVE PERCENT (BEAKER) (test ovup=793) 1 % BASOPHILS RELATIVE PERCENT (BEAKER) (test ylsn=722) 0 % NEUTROPHILS ABSOLUTE COUNT (BEAKER) (test jtle=555) 11.21 K/ L 1.56-6.13 LYMPHOCYTES ABSOLUTE COUNT (BEAKER) (test nqex=759) 0.60 K/ L 1.18-3.74 MONOCYTES ABSOLUTE COUNT (BEAKER) (test efws=584) 1.60 K/ L 0.24-0.36 EOSINOPHILS ABSOLUTE COUNT (BEAKER) (test dmsn=510) 0.09 K/ L 0.04-0.36 BASOPHILS ABSOLUTE COUNT (BEAKER) (test vztb=271) 0.03 K/ L 0.01-0.08 IMMATURE GRANULOCYTES-RELATIVE PERCENT (BEAKER) (test wvrv=9048) 1 % 0-1 TISSUE [id number] 18:37:00Surgical Pathology Report Case: [id number] Authorizing Provider: Tc Schultz MD Collected: 01/21/2017 1226 Ordering Location: [address] Received: 01/24/2017 0902 SERVICE Pathologist: Doroteo Reyes MD Specimens: A) - Biopsy, Gastric, BX TO R/O H. PYLORI B) - Polyp, Colon - Sigmoid, POLYP - COLD SNARE A. STOMACH, BIOPSY: - FRAGMENTS OF OXYNTIC MUCOSA WITH PROTON PUMP INHIBITOR THERAPY EFFECT - WARTHIN-STARRY STAIN IS NEGATIVE FOR HELICOBACTER PYLORI ORGANISMS- NEGATIVE FOR INTESTINAL METAPLASIA/ DYSPLASIA/ MALIGNANCYB. COLON, SIGMOID POLYP, BIOPSY: - TUBULAR ADENOMA [id number] deficiency, rule out H. pyloriA. Gastric biopsy; B. Sigmoid polypSpecimen A: Received in formalin labeled "biopsy, gastric" are three fragments measuring 0.8 x 0.6 x 0.1 cm in aggregate. Entirely submitted A1.Specimen B: Received in formalin labeled "polyp, colon sigmoid" is a single fragment measuring 0.5 cm in greatest dimension. Entirely submitted B1. [id number] 04:24:00* Test Item Value Reference Range Comments PHOSPHORUS (BEAKER) (test slvd=708) 3.3 mg/dL 2.3-4.7 [id number] 04:24:00* Test Item Value Reference Range Comments MAGNESIUM (BEAKER) (test sogt=955) 1.8 mg/dL 1.6-2.6 BASIC METABOLIC [id number] 04:24:00* Test Item Value Reference Range Comments SODIUM (BEAKER) (test fizr=134) 135 meq/L 136-145 POTASSIUM (BEAKER) (test rhgs=659) 3.7 meq/L 3.5-5.1 CHLORIDE (BEAKER) (test vsqt=761) 105 meq/L 98-107 CO2 (BEAKER) (test hwou=616) 20 meq/L 22-29 BLOOD UREA NITROGEN (BEAKER) (test hvhm=247) 11 mg/dL 7-21 CREATININE (BEAKER) (test ajbj=317) 0.84 mg/dL 0.57-1.25 GLUCOSE RANDOM (BEAKER) (test qyzh=153) 110 mg/dL 70-105 CALCIUM (BEAKER) (test narf=382) 9.0 mg/dL 8.4-10.2 EGFR (BEAKER) (test pyaa=7178) 66 mL/min/1.73 sq m ESTIMATED GFR IS NOT ACCURATE CREATININE CLEARANCE IN PREDICTING GLOMERULAR FILTRATION RATE. ESTIMATED GFR IS NOT APPLICABLE FOR DIALYSIS PATIENTS. CBC W/PLT COUNT & AUTO [id number] 04:15:00* Test Item Value Reference Range Comments WHITE BLOOD CELL COUNT (BEAKER) (test untr=969) 11.4 K/ L 4.0-10.0 RED BLOOD CELL COUNT (BEAKER) (test afsn=886) 4.52 M/ L 4.00-5.00 HEMOGLOBIN (BEAKER) (test trdx=211) 9.6 GM/DL 12.0-15.0 HEMATOCRIT (BEAKER) (test tstu=389) 30.7 % 36.0-45.0 MEAN CORPUSCULAR VOLUME (BEAKER) (test xrqp=984) 68.0 fL 82.0-99.0 MEAN CORPUSCULAR HEMOGLOBIN (BEAKER) (test ehrc=527) 21.2 pg 27.0-33.0 MEAN CORPUSCULAR HEMOGLOBIN CONC (BEAKER) (test gdmn=076) 31.1 GM/DL 32.0-36.0 RED CELL DISTRIBUTION WIDTH (BEAKER) (test qizp=204) 26.3 % 10.3-14.2 PLATELET COUNT (BEAKER) (test cidw=602) 275 K/CU MM 150-430 MEAN PLATELET VOLUME (BEAKER) (test gwjz=235) 5.3 fL 6.5-10.5 NUCLEATED RED BLOOD CELLS (BEAKER) (test znci=267) 0 /100 WBC 0-0 NEUTROPHILS RELATIVE PERCENT (BEAKER) (test tble=285) 80 % LYMPHOCYTES RELATIVE PERCENT (BEAKER) (test ired=552) 9 % MONOCYTES RELATIVE PERCENT (BEAKER) (test qtam=500) 9 % EOSINOPHILS RELATIVE PERCENT (BEAKER) (test uuuc=475) 2 % BASOPHILS RELATIVE PERCENT (BEAKER) (test ouhc=085) 0 % NEUTROPHILS ABSOLUTE COUNT (BEAKER) (test kumq=210) 9.06 K/ L 1.80-8.00 LYMPHOCYTES ABSOLUTE COUNT (BEAKER) (test goee=027) 1.06 K/ L 1.48-4.50 MONOCYTES ABSOLUTE COUNT (BEAKER) (test lcgg=069) 0.98 K/ L 0.00-1.30 EOSINOPHILS ABSOLUTE COUNT (BEAKER) (test xpej=003) 0.23 K/ L 0.00-0.50 BASOPHILS ABSOLUTE COUNT (BEAKER) (test lsef=466) 0.05 K/ L 0.00-0.20 OCCULT BLOOD, [id number] 04:03:00* Test Item Value Reference Range Comments FECAL OCCULT BLOOD (BEAKER) (test ntii=707) Negative Negative VITAMIN D, [id number] 13:27:00* Test Item Value Reference Range Comments VITAMIN D 25-OH (BEAKER) (test vppv=1269) 42.2 ng/mL 13.0-47.8 TSH/FREE T4 IF [id number] 08:47:00* Test Item Value Reference Range Comments THYROID STIMULATING HORMONE (BEAKER) (test axfa=406) 1.87 uIU/mL 0.35-4.94 [id number] 08:29:00* Test Item Value Reference Range Comments MAGNESIUM (BEAKER) (test jkss=272) 1.5 mg/dL 1.6-2.6 BASIC METABOLIC [id number] 08:29:00* Test Item Value Reference Range Comments SODIUM (BEAKER) (test nhpv=834) 136 meq/L 136-145 POTASSIUM (BEAKER) (test qtqi=375) 3.1 meq/L 3.5-5.1 CHLORIDE (BEAKER) (test zegp=940) 106 meq/L 98-107 CO2 (BEAKER) (test mzzp=934) 23 meq/L 22-29 BLOOD UREA NITROGEN (BEAKER) (test ezpr=467) 11 mg/dL 7-21 CREATININE (BEAKER) (test jggt=909) 0.77 mg/dL 0.57-1.25 GLUCOSE RANDOM (BEAKER) (test uvml=551) 82 mg/dL 70-105 CALCIUM (BEAKER) (test mmyo=625) 8.1 mg/dL 8.4-10.2 EGFR (BEAKER) (test esor=9678) 73 mL/min/1.73 sq m ESTIMATED GFR IS NOT ACCURATE CREATININE CLEARANCE IN PREDICTING GLOMERULAR FILTRATION RATE. ESTIMATED GFR IS NOT APPLICABLE FOR DIALYSIS PATIENTS. HEMOGLOBIN AND [id number] 08:24:00* Test Item Value Reference Range Comments HEMOGLOBIN (BEAKER) (test epil=850) 7.8 GM/DL 12.0-15.0 HEMATOCRIT (BEAKER) (test yngv=198) 25.2 % 36.0-45.0 [id number] 08:18:00* Test Item Value Reference Range Comments PROTIME (BEAKER) (test dcdy=076) 13.4 seconds 11.7-14.7 INR (BEAKER) (test cavs=138) 1.0 <=5.9 PARTIAL THROMBOPLASTIN TIME (BEAKER) (test uofz=512) 33.6 seconds 22.5-36.0 RECOMMENDED COUMADIN/WARFARIN INR THERAPY RANGESSTANDARD DOSE: 2.0 - 3.0 Inclu myah: PROPHYLAXIS for venous thrombosis, systemic embolization; TREATMENT for juan ous thrombosis and/or pulmonary embolus.HIGH RISK: Target INR is 2.5-3.5 for pat ients with mechanical heart valves.IRON, TIBC, % SAT. (WITHOUT FERRITIN) 2017-01-19 20:26:00* Test Item Value Reference Range Comments IRON (BEAKER) (test asiz=821) 10 ug/dL 40-160 TOTAL IRON BINDING CAPACITY (BEAKER) (test aelz=040) 475 ug/dL 250-450 IRON % SATURATION (2) (BEAKER) (test vhrv=7371) 2 % 20-55 HEPATIC FUNCTION [id number] 19:16:00* Test Item Value Reference Range Comments TOTAL PROTEIN (BEAKER) (test flik=076) 6.8 gm/dL 6.0-8.3 ALBUMIN (BEAKER) (test wgqw=6056) 4.2 g/dL 3.5-5.0 BILIRUBIN TOTAL (BEAKER) (test sqsg=595) 0.6 mg/dL 0.2-1.2 BILIRUBIN DIRECT (BEAKER) (test rmzj=760) 0.2 mg/dL 0.1-0.5 ALKALINE PHOSPHATASE (BEAKER) (test pzfl=807) 61 U/L 40-150 AST (SGOT) (BEAKER) (test wymd=448) 23 U/L 5-34 ALT (SGPT) (BEAKER) (test ihkv=083) 17 U/L 6-55 BASIC METABOLIC [id number] 15:57:00* Test Item Value Reference Range Comments SODIUM (BEAKER) (test fvfx=146) 132 meq/L 136-145 POTASSIUM (BEAKER) (test xhsg=179) 4.0 meq/L 3.5-5.1 CHLORIDE (BEAKER) (test mwjo=356) 98 meq/L 98-107 CO2 (BEAKER) (test istc=517) 25 meq/L 22-29 BLOOD UREA NITROGEN (BEAKER) (test wwih=667) 14 mg/dL 7-21 CREATININE (BEAKER) (test eaoj=192) 0.92 mg/dL 0.57-1.25 GLUCOSE RANDOM (BEAKER) (test guut=620) 103 mg/dL 70-105 CALCIUM (BEAKER) (test smyz=607) 8.9 mg/dL 8.4-10.2 EGFR (BEAKER) (test bbkh=3303) 59 mL/min/1.73 sq m ESTIMATED GFR IS NOT ACCURATE CREATININE CLEARANCE IN PREDICTING GLOMERULAR FILTRATION RATE. ESTIMATED GFR IS NOT APPLICABLE FOR DIALYSIS PATIENTS. CBC W/PLT COUNT & AUTO [id number] 15:47:00* Test Item Value Reference Range Comments WHITE BLOOD CELL COUNT (BEAKER) (test otod=641) 7.0 K/ L 4.0-10.0 RED BLOOD CELL COUNT (BEAKER) (test dktj=989) 3.78 M/ L 4.00-5.00 HEMOGLOBIN (BEAKER) (test lsme=710) 6.7 GM/DL 12.0-15.0 HEMATOCRIT (BEAKER) (test fcvn=164) 22.2 % 36.0-45.0 MEAN CORPUSCULAR VOLUME (BEAKER) (test eybe=389) 58.7 fL 82.0-99.0 MEAN CORPUSCULAR HEMOGLOBIN (BEAKER) (test bels=445) 17.8 pg 27.0-33.0 MEAN CORPUSCULAR HEMOGLOBIN CONC (BEAKER) (test thwb=929) 30.3 GM/DL 32.0-36.0 RED CELL DISTRIBUTION WIDTH (BEAKER) (test cspm=202) 18.9 % 10.3-14.2 PLATELET COUNT (BEAKER) (test vsuf=638) 276 K/CU MM 150-430 MEAN PLATELET VOLUME (BEAKER) (test wiey=261) 5.0 fL 6.5-10.5 NUCLEATED RED BLOOD CELLS (BEAKER) (test mikv=202) 0 /100 WBC 0-0 NEUTROPHILS RELATIVE PERCENT (BEAKER) (test dtps=994) 68 % LYMPHOCYTES RELATIVE PERCENT (BEAKER) (test sles=343) 15 % MONOCYTES RELATIVE PERCENT (BEAKER) (test krue=556) 14 % EOSINOPHILS RELATIVE PERCENT (BEAKER) (test qmpa=569) 3 % BASOPHILS RELATIVE PERCENT (BEAKER) (test patr=890) 1 % NEUTROPHILS ABSOLUTE COUNT (BEAKER) (test soao=852) 4.71 K/ L 1.80-8.00 LYMPHOCYTES ABSOLUTE COUNT (BEAKER) (test tcib=849) 1.03 K/ L 1.48-4.50 MONOCYTES ABSOLUTE COUNT (BEAKER) (test pzhn=923) 1.00 K/ L 0.00-1.30 EOSINOPHILS ABSOLUTE COUNT (BEAKER) (test zlpx=010) 0.18 K/ L 0.00-0.50 BASOPHILS ABSOLUTE COUNT (BEAKER) (test ivdy=533) 0.05 K/ L 0.00-0.20 0.00
--- NOTE | 2018-07-10 03:02 | Diagnostic Imaging Report ---
History: Final Comparison studies: None Technique: Axial images were obtained from the skull base to the vertex. Coronal and sagittal reconstructions obtained from the axial data. Dose modulation, iterative reconstruction, and/or weight based adjustment of the mA/kV was utilized to reduce the radiation dose to as low as reasonably achievable. Findings: Scalp/skull: No abnormalities. No fractures, blastic or lytic lesions. Extra-axial spaces: No masses. No fluid collections. Brain sulci: Appropriate for age. Ventricles: Normal in size and configuration. No hydrocephalus. Parenchyma: No abnormal densities. No masses, hemorrhage, acute or chronic cortical vascular insults. Sellar/suprasellar region: No abnormalities Craniocervical junction: Patent foramen magnum. No Chiari one malformation. IMPRESSION: No acute abnormalities. Signed by: Dr. Collin Abdalla M.D. on 07/10/2018 2:58 AM
--- NOTE | 2018-07-10 03:31 | Diagnostic Imaging Report ---
History: Fall Comparison studies: None Technique: Axial images were obtained through the cervical region.. Coronal and sagittal images reconstructed from the axial data. Dose modulation, iterative reconstruction, and/or weight based adjustment of the mA/kV was utilized to reduce the radiation dose to as low as reasonably achievable. Intravenous contrast: None Findings: Fractures: None. Soft tissues: No gross abnormalities. Atlantoaxial articulation: Intact. Alignment: Straightening of the usual lordosis centered at C5 2 mm retrolisthesis of C5 on C6, 2 mm anterolisthesis of C7 on T1 Cervicomedullary junction: No abnormalities. The foramen magnum is patent. Vertebrae: Bones are moderately demineralized No infection or neoplasm. Degenerative changes: Degenerated discs, from C3 to T2, is worse from C3 to C6. Facet and uncovertebral arthrosis bilaterally from C2 through T1 is worse on the right. Foraminal stenosis from C1 to T1 is worse left at C3-4 right at C5-6 due to to facet and uncoarthrosis. Spinal canal stenosis is mild at C3-4, moderate at C5-6 due to disc osteophyte complexes. Incidental 5 mm calcification in the right lobe of the thyroid IMPRESSION: 1. No acute cervical abnormalities. 2. Cannot adequately evaluate for ligament, spinal cord and or vascular abnormalities. 3. Extensive degenerative changes as described. Signed by: Dr. Collin Abdalla M.D. on 07/10/2018 3:28 AM
== END 2018-07-10 04:06 | disposition home or self-care (01) ==
LOC: FSED 01:46
DX: S06.0X0A Concussion without loss of consciousness, initial encounter (principal); S01.81XA Laceration without foreign body of other part of head, initial encounter; M54.2 Cervicalgia; M47.892 Other spondylosis, cervical region; W01.0XXA Fall on same level from slipping, tripping and stumbling without subsequent striking against object, initial encounter; Y92.008 Other place in unspecified non-institutional (private) residence as the place of occurrence of the external cause
CPT/HCPCS: 70450; 72125; 99283

== ENCOUNTER 2019-10-23 14:31 | Emergency (ER) | payer MEDICARE ==
[~2019-10-23] VITALS: Ht 152.4 cm; Wt 68.0 kg
--- NOTE | 2019-10-23 15:26 | Diagnostic Imaging Report ---
Examination: CT head without contrast Clinical Indication: Fall with head injury. Technique: Transaxial noncontrast images from the skull base through the vertex were obtained. Sagittal and coronal reformatted images were done. Dose modulation, iterative reconstruction, and/or weight based adjustment of the mA/kV was utilized to reduce the radiation dose to as low as reasonably achievable. Comparison: CT performed July 10, 2018. Findings: Scalp: No abnormalities. Bones: Intact. No fractures. No blastic or lytic lesions. Brain sulci: Appropriate for patient's age. Ventricles: Normal in size and configuration. No hydrocephalus. . Extra-axial space: No abnormalities. Parenchyma: There are mild confluent areas of low-attenuation within subcortical and periventricular white matter, nonspecific, but could represent microvascular ischemic disease. No masses, hemorrhage, or acute or chronic cortical based vascular insults. Suprasellar region: No abnormalities. Craniocervical junction: The foramen magnum is patent. No Chiari one malformation. Incidental findings: Atherosclerotic calcification of the cavernous and supraclinoid internal carotid arteries. Impression: 1. No new or acute intracranial finding when compared to prior head CT performed July 10, 2018. 2. Unchanged chronic microvascular ischemic change. Signed by: Dr. Tosha Bernabe M.D. on 10/23/2019 3:23 PM
--- NOTE | 2019-10-23 15:37 | Diagnostic Imaging Report ---
Examination: CT CERVICAL SPINE WO CONTRAST HISTORY:Neck injury and pain after fall. COMPARISON:None. TECHNIQUE: Multidetector helical axial images were obtained without contrast from the foramen magnum to T1. Coronal and sagittal reformatted images were done. Bone and soft tissue windows were evaluated. Dose modulation, iterative reconstruction, and/or weight based adjustment of the mA/kV was utilized to reduce the radiation dose to as low as reasonably achievable. FINDINGS: Alignment:Normal alignment with straightening of normal lordosis. Unchanged mild retrolisthesis of C5 on C6 (2 mm) and grade 1 anterolisthesis of C7 on T1 (2 mm cluster. Vertebrae: Normal height and density. No acute fracture, infection or neoplasm. Disc space heights: Severely narrowed at C3-C4 and C5-C6. Caliber of spinal canal: Developmentally normal. Posterior fossa and craniocervical junction: Foramen magnum patent. No Chiari 1 malformation. Soft tissues: Unchanged dystrophic calcification in the right thyroid lobe Degenerative changes: Diffuse disc osteophyte complexes at C3-C4, C4-C5, C5-C6 and C6-C7 without canal stenosis. Severe right foraminal narrowing at C5-C6. Bilateral facet arthropathy from C2 through C6. Visualized lung apices: No abnormalities. IMPRESSION: 1. No new acute abnormality when compared to prior cervical spine CT performed July 10, 2018. 2. Unchanged degenerative changes, as above. Signed by: Dr. Tosha Bernabe M.D. on 10/23/2019 3:34 PM
== END 2019-10-23 16:25 | disposition home or self-care (01) ==
LOC: ER 14:31
DX: S06.0X0A Concussion without loss of consciousness, initial encounter (principal); S01.81XA Laceration without foreign body of other part of head, initial encounter; R51 Headache; M54.2 Cervicalgia; W01.198A Fall on same level from slipping, tripping and stumbling with subsequent striking against other object, initial encounter; Y93.01 Activity, walking, marching and hiking; Y92.89 Other specified places as the place of occurrence of the external cause
CPT/HCPCS: 70450; 72125; 99284